=== PATIENT | female | born 1945 | race Caucasian/White ===

== ENCOUNTER → 2016-03-20 | Outpatient (REF) | payer MEDICARE ==
[~2016-03-20] MED LIST: AMLO5TAB2 PO; ANTIVERT PO; CIPR500T89 PO; FERR325T3 PO; FLAG500T PO; LASI40TA PO; LIPI20TA PO; LISI10TA4 PO; METF500T PO; PROTPAK PO; TYLE167L PO; VITA100037 PO
== END ==
LOC: M LAB REF 12:51
PROVIDERS: ATTEND Nurse Practitioner Adult Health
DX: D64.9 Anemia, unspecified (principal)

== ENCOUNTER 2016-04-09 15:54 | Outpatient (CLI) | payer MEDICARE ==
[~2016-04-09] VITALS: Ht 160.7 cm; Wt 75.3 kg
[2016-04-09] MEDS ORDERED: FUROSEMIDE 20 MG/2 ML VIAL (J1940) IV SCH (16:15)
== END 2016-04-09 23:55 | disposition home or self-care (01) ==
LOC: M OPCLI4PR 15:54 → M PED 15:57 → M OPCLI4PR 23:55
PROVIDERS: ATTEND Internal Medicine
DX: D64.9 Anemia, unspecified (principal); K52.9 Noninfective gastroenteritis and colitis, unspecified; Z87.19 Personal history of other diseases of the digestive system; Z88.5 Allergy status to narcotic agent; Z88.8 Allergy status to other drugs, medicaments and biological substances; Z91.040 Latex allergy status
CPT/HCPCS: 36430; 86850; 86900; 86901; 86920; J1940; P9016

== ENCOUNTER → 2016-04-10 | Outpatient (REF) | payer MEDICARE ==
[2016-04-10 19:26] LABS: PERCENT SATURATION 10.7 % (13.2-37.4)
[2016-04-10 20:28] LABS: RETIC HEMOGLOBIN CONTENT CHr 26.1 PG (24-36); RETICULOCYTE % ADVIA2120 4.1 % (0.5-1.5)
[2016-04-10 22:08] LABS: FOLATE 6.8 NG/ML (>5.4)
[2016-04-13 00:09] LABS: ENDOMYSIAL ABY IgA Negative (Negative)
== END ==
LOC: M LAB REF 16:46
PROVIDERS: ATTEND Nurse Practitioner Family
DX: D64.9 Anemia, unspecified (principal)

== ENCOUNTER 2016-05-29 11:46 | Inpatient (IN) | payer MEDICARE ==
[~2016-05-29] VITALS: Ht 167.6 cm; Wt 79.3 kg
[2016-05-29] VITALS (7 sets, daily range): BP systolic 130–142; BP diastolic 54–66
[~2016-05-29 11:46] MED LIST changes: -ASPI1TAB PO; -FISH100049 PO; -METO37.5 PO; -TYLE325T5 PO; -VITA100066 PO; -VITA500T53 PO
[2016-05-29] MEDS ORDERED: FISH100049 PO (11:59)
[2016-05-29] MEDS ORDERED: NS 500 ML IV ONE (12:30)
[2016-05-29] MEDS ORDERED: LISI10TA4 PO (13:22)
[2016-05-29] MEDS ORDERED: TYLE325T5 PO (13:22)
[2016-05-29] MEDS ORDERED: ASPI1TAB PO (13:22)
[2016-05-29] MEDS ORDERED: VITA100066 PO (13:22)
[2016-05-29 13:56] LABS: BASO % 0.3 % (0.0-1.0); EOS % 0.2 % (0.0-3.0); LARGE UNSTAINED CELL # 0.1 K/mm3 (0.0-0.4); LARGE UNSTAINED CELL % 1.2 % (0.0-4.0); LYMPH # 1.6 K/mm3 (1.5-4.5); LYMPH % 15.9 % (24.0-44.0); MEAN CORPUSCULAR HEMOGLOBIN 20.1 pg (27.0-33.0); MEAN CORPUSCULAR HGB CONC 25.4 g/dl (32.0-36.5); MEAN CORPUSCULAR VOLUME 78.9 fl (80.0-96.0); MONO # 0.4 K/mm3 (0.0-0.8); NEUTROPHILS # 7.7 K/mm3 (1.8-7.7); NEUTROPHILS % 78.4 % (36.0-66.0); PLATELET COUNT, AUTOMATED 314 k/mm3 (150-450); RED CELL DISTRIBUTION WIDTH 16.9 % (11.5-14.5); WHITE BLOOD COUNT 9.8 K/mm3 (4.0-10.0)
[2016-05-29 13:57] LABS: ADD MORPHOLOGY? YES; INR 1.01
--- NOTE | 2016-05-29 13:58 | HPEPDOC ---
Medical History and Physical Date of Admission 05/29/16 History and Physical ATTENDING: PCP: Candice Ko NP CC: SOB, abnormal lab HPI: 70yoF with a past medical history significant for HTN, Fe deficiency anemia , DM Diet controlled, who called PCP this am reporting SOB and dark stool this AM. Went to see PCP with labs completed-Hgb 5.4, and was referred to ED. Pt states has felt weak, lightheaded and dizzy for the last week but did not seek medical attention until today. Denies CP, heaviness, tightness, pressure. No changes in stool until this AM, no BRBPR. No abdominal pain. Pt states she usually has labs done with PCP monthly but does not know what her Hgb has been trending. No other recent illnesses. Denies any fevers, chills, ROSAS, cough, palpitations, N/V/D or changes in bowel or bladder habits. Upon presentation to the hospital the patient was found to have symptomatic anemia, thus the hospitalist team was consulted. PMHx: Fe def anemia H/O GI Bleeding H/O transfusion HLD Vit D def HTN NIDDM- diet controlled H/O Murmur. No prior testing per pt. CP 01/31- Transfer to [facility] Cath- no procedure per Pt PSHX: Cholecystectomy Lt cataract EGD 06/[address] [facility]. Small HH Colonoscopy06/[address] [facility]. inflammatory bowel disease/external hemorrhoid. 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 ROS: As noted in HPI, otherwise 11pt ROS of systems reviewed and unremarkable. PE: GEN: 70yoF, appears stated age. Pale appearing. No acute distress. Alert and oriented x 3. Pleasant, interactive. HEENT: Normocephalic, atraumatic. Pupils are equal, round, and reactive to light. Extraocular movements are intact. No nystagmus appreciated. Sclera are nonicteric. Conjunctiva pale. Nose midline. EACs both patent BL. TMs both visualized and bowen with good cone of light, no bulging or erythema. No facial asymmetry. Moist mucous membranes. Dentition fair. Pharynx pale appearing and moist. Neck supple, trachea midline. No lymphadenopathy or thyromegaly appreciated. CHEST: Regular rate and rhythm, +S1, +S2. Systolic murmur noted. LUNGS: Clear to auscultation bilaterally. No wheezes, rales, or rhonchi. Breathing appears symmetric and easy. Patient is speaking in full sentences. No accessory muscle use. ABD: Round, soft, non-tender, non-distended. +Bowel sounds throughout. No rebound or guarding. No costovertebral angle tenderness. EXT: Pulses 2+ bilaterally dorsalis pedis and radial. No lower extremity edema appreciated. SKIN: [place], dry, warm. Capillary refill <2sec. No rashes. NEURO: Alert and oriented x 3. Cranial nerves III-XII are intact. No focal deficits appreciated. CXR: report pending ALL LABS PENDING Stool guaiac pos in ED. EKG: SR, LVH, ST abn, 89 bpm. A&P: 70yoF with a past medical history significant for HTN, Fe deficiency anemia, DM Diet controlled, who called PCP this am reporting SOB and dark stool this AM. Went to see PCP with labs completed-Hgb 5.4, and was referred to ED. The patient will be admitted to PCU for at least [address] Fernando's service. Pt is discussed with Dr Fernando. GI Bleeding/Symptomatic anemia. Consent for blood products is signed and placed on chart. Type and cross. 2 units PRBC ordered. CBC Q6. Stool OB positive in ED. HOLD ASA. Add CIP/Troponin to admission labs and x3. Add Fe studies, B12/Folate to labs. Last scopes 06/30- Consult Dr Moffett to consider repeat studies, discussed with him in ED. H/O Fe def anemia. HTN. Hold Lisinopril. HLD. Continue Statin. DM. Diet controlled as outpt. Vitamin d def. Supplement. Murmur. Remote TTE in past through PCP per pt. Request [facility] records from 01/31 for review. DVT prophylaxis. SCD/TEDS The patient is a Full code Vital Signs 96.9 91 117/64 20 Laboratory Data Labs 24H Laboratory Tests 2 05/29/16 13:35: Home Medications Scheduled Aspirin (Aspirin 81) 81 Mg Tab 81 MG PO DAILY Atorvastatin Calcium (Lipitor) 20 Mg Tab 20 MG PO DAILY Cholecalciferol (Vitamin D) 1,000 Unit Tab 1,000 UNIT PO DAILY Ferrous Sulfate (Ferrous Sulfate) 325 Mg Tab 325 MG PO BID Fish Oil (Fish Oil 1000 mg) 1 Cap Cap 1 CAP PO DAILY Lisinopril (Lisinopril) 10 Mg Tab 10 MG PO DAILY Scheduled PRN Acetaminophen (Tylenol) 325 Mg Tab 650 MG PO Q4H PRN PRN PAIN Allergies Coded Allergies: Latex (Unverified Allergy, Mild, Rash, 06/24/14) Pt reports " I don't think I am allergic but I tend to breakout around latex" Morphine (Verified Adverse Reaction, Intermediate, DROP IN BP, 04/09/16) Eleanor Barrett May 29, 2016 13:57
--- NOTE | 2016-05-29 14:03 | REP ---
PORTABLE CHEST X-RAY: Single view. HISTORY: Dyspnea and cough. Comparison study February 10, 2016. FINDINGS: EKG monitoring electrodes overlie the chest. The lungs are well inflated and clear. Heart is not felt to be enlarged. Pulmonary vasculature is not increased. There are granulomatous lymph nodes in the subcarinal region which appear to be calcified. This is unchanged. Pleural angles are sharp. Oxygen tubing is seen. IMPRESSION: No active disease. Signed by Julio Self MD 05/29/2016 03:18 P
[2016-05-29 14:19] LABS: ALBUMIN/GLOBULIN RATIO 0.88 (1.00-1.93); ALKALINE PHOSPHATASE 99 U/L (45-117); ALT/SGPT 18 U/L (12-78); ANION GAP 9 MEQ/L (8-16); AST/SGOT 21 U/L (15-37); BILIRUBIN,DIRECT < 0.1 MG/DL (0.0-0.2); BILIRUBIN,TOTAL 0.4 MG/DL (0.2-1.0); BLOOD UREA NITROGEN 29 MG/DL (7-18); CARBON DIOXIDE LEVEL 26 MEQ/L (21-32); CHLORIDE LEVEL 107 MEQ/L (98-107); GLUCOSE, FASTING 100 MG/DL (83-110); POTASSIUM SERUM 4.3 MEQ/L (3.5-5.1); SODIUM LEVEL 142 MEQ/L (136-145); TOTAL PROTEIN 6.4 GM/DL (6.4-8.2)
[2016-05-29 14:35] LABS: ANISOCYTOSIS 1+; HYPOCHROMASIA 3+
[2016-05-29 14:36] LABS: MICROCYTOSIS 1+
[2016-05-29 15:10] LABS: TOTAL IRON BINDING CAPACITY 443 UG/DL (250-450)
[2016-05-29 15:12] LABS: FERRITIN 5 NG/ML (8-252)
[2016-05-29 15:45] LABS: FOLATE > 24.0 NG/ML (>5.4); VITAMIN B12 LEVEL 173 PG/ML (247-911)
--- NOTE | 2016-05-29 15:58 | IPN ---
DATE: 05/29/2016 The patient was admitted to the progressive care unit (PCU) and all the admission work is being complete. Later, the patient's cardiac enzymes came back positive for troponin I of 1.1. I discussed the findings with the patient. The patient stated that she does not have any chest pain or chest discomfort, and the patient does not have any EKG changes. I discussed the case with cardiology, Dr. Louis. We both feel the patient's troponin elevation is due to her severe anemia and the current course of management is to give the patient a blood transfusion and trending cardiac enzymes. There is really no immediate benefit to transfer the patient to [facility] because right now the most correct treatment is for blood transfusion. I discussed the findings and discussions with the patient. The patient agrees with the plan. The patient's questions are answered. For now, the patient will have 2 packed red blood cell transfusion. Hemoglobin and hematocrit will be checked every six hours. Currently, we will try to increase the hemoglobin to above 9. The patient will have a colonoscopy tomorrow.
[2016-05-29] MEDS: NS 1,000 ML IV SCH (17:26)
[2016-05-29] MEDS ORDERED: GOLYTELY SOLN 4000 ML BTL PO ONE (19:00)
[2016-05-29] MEDS: PANTOPRAZOLE 40MG INJ (PROTONIX) (C9113) IV SCH (21:25)
[2016-05-29 22:21] LABS: MEAN CORPUSCULAR HEMOGLOBIN 24.4 pg (27.0-33.0); MEAN CORPUSCULAR HGB CONC 29.8 g/dl (32.0-36.5); MEAN CORPUSCULAR VOLUME 81.7 fl (80.0-96.0); RED CELL DISTRIBUTION WIDTH 15.8 % (11.5-14.5); WHITE BLOOD COUNT 13.4 K/mm3 (4.0-10.0)
[2016-05-30 03:56] VITALS: BP 144/64
[2016-05-30 04:52] LABS: MEAN CORPUSCULAR HEMOGLOBIN 24.1 pg (27.0-33.0); MEAN CORPUSCULAR HGB CONC 29.4 g/dl (32.0-36.5); MEAN CORPUSCULAR VOLUME 82.1 fl (80.0-96.0); WHITE BLOOD COUNT 15.6 K/mm3 (4.0-10.0)
[2016-05-30 05:12] LABS: ALBUMIN 2.9 GM/DL (3.2-5.2); ALBUMIN/GLOBULIN RATIO 0.83 (1.00-1.93); BILIRUBIN,TOTAL 2.9 MG/DL (0.2-1.0); CALCIUM LEVEL 8.2 MG/DL (8.8-10.2); CREATININE FOR GFR 1.05 MG/DL (0.55-1.02); GLOMERULAR FILTRATION RATE 54.8 (>39); POTASSIUM SERUM 4.4 MEQ/L (3.5-5.1); TOTAL PROTEIN 6.4 GM/DL (6.4-8.2)
[2016-05-30 08:00] VITALS: BP 135/65
--- NOTE | 2016-05-30 08:15 | ECGEPIP ---
Stationary ECG Study [facility] - ED Test Date: 2016-05-29 Pat Name: AGUSTO PA Department: Room: - Gender: F Quality Assurance Monitor: SYLVIA : 1945 Requested By: BETINA Vergara Order Number: [id number] Reading MD: Isra Nelson Measurements Intervals [place] Rate: 89 P: 56 VT: 120 QRS: 10 QRSD: 86 T: 1 QT: 365 QTc: 445 Interpretive Statements SINUS RHYTHM LEFT VENTRICULAR HYPERTROPHY AND ST-T CHANGE NSTTW ABNORMALITIES SIMILAR TO 02/10/16 Electronically Signed On 05-30-2016 8:14:48 EDT by Isra Nelson
[2016-05-30] MEDS: VITAMIN D 1,000 INTERNATIONAL UNITS TABLET PO SCH (08:53)
[2016-05-30] MEDS: PANTOPRAZOLE 40MG INJ (PROTONIX) (C9113) IV SCH ×2 (08:53→21:23)
[2016-05-30] MEDS: NS 1,000 ML IV SCH (08:54)
[2016-05-30] MEDS ORDERED: ATORVASTATIN 20 MG TAB PO SCH (09:00)
--- NOTE | 2016-05-30 10:43 | ECGEPIP ---
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 THERE IS ARTIFACT NOTED ON THE BASELINE Electronically Signed On 05-30-2016 10:42:50 EDT by Nic Jimenez
--- NOTE | 2016-05-30 10:52 | ECGEPIP ---
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
[2016-05-30 12:00] VITALS: BP 142/68
[2016-05-30] MEDS: METOPROLOL TART 25 MG TABLET PO SCH ×2 (14:05→21:23)
[2016-05-30 14:32] LABS: MEAN CORPUSCULAR HGB CONC 29.9 g/dl (32.0-36.5); MEAN CORPUSCULAR VOLUME 80.3 fl (80.0-96.0); RED CELL DISTRIBUTION WIDTH 16.5 % (11.5-14.5); WHITE BLOOD COUNT 13.1 K/mm3 (4.0-10.0)
[2016-05-30] MEDS: CYANOCOBALAMIN 500 MCG TAB PO SCH (15:24)
--- NOTE | 2016-05-30 15:38 | IPN ---
DATE: 05/30/2016 SUBJECTIVE: Patient is seen and examined in the room today. Patient denies any chest pain. Patient has been using the bowel preparation since yesterday at 7:00 p.m. Patient stated the stool has been dark brown. Denies any visible blood. OBJECTIVE: VITAL SIGNS: Temperature 97.9, pulse is 100, respiratory rate 18, blood pressure is 135/65, pulse oximetry is 93% with two liters nasal cannula. GENERAL: No sign of acute distress, alert and oriented times three. HEENT: Normocephalic, atraumatic. Extraocular motor grossly intact. CARDIOVASCULAR: Positive S1, S2, regular rate. LUNGS: Clear to auscultation bilaterally. ABDOMEN: Soft, nontender, nondistended. Bowel sounds present. No rebound. No guarding. EXTREMITIES: No edema. No cyanosis. LABORATORY DATA: WBC is 15.6, hemoglobin is 9, hematocrit is 30.7, platelet count is 282. Sodium is 140, potassium 4.4, chloride is 104, carbon dioxide 27, BUN 25, creatinine 1.05, GFR is 54.8, fasting glucose is 139, calcium is 8.2, total bilirubin is 2.9, AST 117, ALT 88, alkaline phosphatase 123, total CK is 302, troponin I is 3, total protein is 6.4, albumin 2.9. ASSESSMENT AND PLAN: 1. Severe anemia. Patient has received three packed red blood cell transfusions since admission. Hemoglobin and hematocrit have been stable, hemoglobin of 9 and hematocrit around 30. We will continue to follow the repeat hemoglobin and hematocrit. Due to the severe anemia (hemoglobin of 5.1), patient's troponin increased from 1.1 to 2.62. Now in the morning, patient has a troponin of 3. Patient started to have some EKG changes noted. I will consult the business transformation manager. General surgeon, Dr. Moffett, has been consulted. We will wait for the business transformation manager's recommendation to see when would be an appropriate time to send patient for upper endoscopy and colonoscopy. Dr. Moffett has been consulted for the procedures. 2. Cardiac ischemia. The most recent EKG shows patient has ischemia laterally and inferiorly. The cause of ischemia is due to severe anemia. Patient's hemoglobin and hematocrit has been stable after the transfusion. We will continue to trend the cardiac markers. We appreciate the business transformation manager's additional input. Patient was started on metoprolol tartrate 25 mg by mouth twice a day to control the heart rate and the blood pressure. 3. History of gastrointestinal (GI) bleed. 4. History of iron deficiency and B12 deficiency. Patient is receiving supplements. 5. Non-insulin dependent diabetes. On consistent-carbohydrate diet, on sliding scale. 6. History of dyslipidemia. On statin. 7. Deep vein thrombosis (DVT) prophylaxis. On thromboembolic-deterrent stockings (TEDS) and sequential compression device (SCD).
[2016-05-30 16:00] VITALS: BP 112/61
--- NOTE | 2016-05-30 17:12 | CR ---
DATE OF CONSULTATION: 05/30/2016 CHIEF COMPLAINT: Blood loss anemia. HISTORY OF PRESENT ILLNESS: The patient is a 70-year-old female who presents to the emergency room (ER) with having some dark stools this morning as well as some shortness of breath. She had labs completed by her primary this morning, which showed a hemoglobin of 5.4; therefore, she was referred to the emergency room. She does feel very weak, lightheaded, and dizzy for about the past week. She has had no visible blood in her stools, but they have been slightly dark lately. Denies any chest pain, heaviness, tightness. No nausea, vomiting, and no abdominal pains. No fever, sweats, or chills. She has had problems with anemia about 2 years ago. She had a colonoscopy completed then, which did show some friable lesions in the colon that were biopsied and were negative for any type of malignancy. She was treated symptomatically with transfusions at that time. Has not had any other problems up until this past week. PAST MEDICAL HISTORY: 1. Iron deficient anemia. 2. History of gastrointestinal (GI) bleed. 3. Hyperlipidemia. 4. Vitamin D deficiency. 5. Hypertension. 6. Diabetes. PAST SURGICAL HISTORY: 1. Cholecystectomy. 2. Cataracts. 3. Esophagogastroduodenoscopy (EGD) and colonoscopy in June 2014. SOCIAL HISTORY: Denies drug and alcohol abuse. Smokes two packs a week. FAMILY HISTORY: Noncontributory. REVIEW OF SYSTEMS: Pertinent positives and negatives stated in the history of present illness (HPI). PHYSICAL EXAMINATION: Alert and oriented times three. No acute distress. VITAL SIGNS: Temperature 97.3, pulse 108, respirations 18, blood pressure 142/68, pulse oximetry 97% on 2 liters nasal cannula. HEENT: Pupils equally round and reactive to light and accommodation. HEART: S1, S2, regular rate and rhythm. LUNGS: Clear to auscultation bilaterally. ABDOMEN: Soft, nontender, nondistended. Bowel sounds positive. EXTREMITIES: No clubbing, cyanosis, or edema. LABORATORY DATA: White count 9.8, hemoglobin 5.1, platelets 314. Potassium 4.3. Initial troponin is 1.1. ASSESSMENT AND PLAN: The patient is a 70-year-old female with symptomatic iron deficient anemia, likely secondary to a gastrointestinal (GI) bleed. She is Hemoccult positive. Plan is to do an EGD and colonoscopy once cleared by cardiology. Medicine team is prepping her overnight. We will trend her troponins and plan for likely scopes tomorrow once we have official cardiac clearance.
[2016-05-30 19:56] VITALS: BP 153/60
[2016-05-30 20:17] LABS: MEAN CORPUSCULAR HEMOGLOBIN 24.9 pg (27.0-33.0); MEAN CORPUSCULAR HGB CONC 31.2 g/dl (32.0-36.5); MEAN CORPUSCULAR VOLUME 79.8 fl (80.0-96.0); RED CELL DISTRIBUTION WIDTH 16.7 % (11.5-14.5); WHITE BLOOD COUNT 11.7 K/mm3 (4.0-10.0)
[2016-05-30 23:59] VITALS: BP 114/63
[2016-05-31] VITALS (11 sets, daily range): BP systolic 120–166; BP diastolic 52–93
[2016-05-31 00:43] LABS: MEAN CORPUSCULAR HEMOGLOBIN 24.5 pg (27.0-33.0); MEAN CORPUSCULAR HGB CONC 30.7 g/dl (32.0-36.5); MEAN CORPUSCULAR VOLUME 79.8 fl (80.0-96.0)
[2016-05-31] MEDS: NS 1,000 ML IV SCH ×2 (01:19→09:39)
--- NOTE | 2016-05-31 05:20 | CR ---
DATE OF CONSULTATION: 05/30/2016 CARDIOLOGY CONSULTATION: REASON FOR THE CONSULTATION: Abnormal serum troponin. HISTORY OF PRESENT ILLNESS: 70-year-old woman was admitted on 05/29/2016 after she was found to be markedly anemic with a hemoglobin of 5.4. At that time, she was having weakness, dizziness, and shortness of breath with activities. Prior to that, about 3-5 days, she passed some dark colored stools. She called her primary and she was found to be markedly anemic and she was transferred to the emergency room (ER) from where she was admitted. She was found to have an abnormal EKG and her serum troponin was 1.1, then increased this morning up to 3.0. For this reason, cardiology consult was called. When I saw Mrs. Sangita Benavides, she was in sitting up in bed, in no acute distress. She is planning to have a colonoscopy and gastroscopy looking for a source of gastrointestinal (GI) bleed. Her stools are now brown. Her hemoglobin and hematocrit after being transferred 4 units of packed red blood cells have been fairly stable. She denies any chest pain and she has not been having any shortness of breath. She denies any palpitations. There is no orthopnea or paroxysmal nocturnal dyspnea (PND) or any syncope. It seems that Mrs. Sangita Benavides had the same problem last fall and she was transferred from [facility] with symptomatic anemia, and at that time, she was transfused 1 unit packed red blood cells prior to leaving [facility] emergency room (ER). She had abnormal serum troponin and abnormal EKG. She underwent gastroscopy and no active bleeding was found. She had a nuclear stress test that revealed a small area of inferior wall ischemia and there was a fixed defect at the apex. Left ventricular ejection fraction (LVEF) was about 40-45%. It seemed that she also had a cardiac catheterization in month of February of 2015 and at that time, she was found to have an occluded dominate right coronary artery (RCA) with left to right . No significant disease in the left coronary artery system. Prior to that, in the month of January, she had an echocardiogram that revealed moderately severe aortic stenosis and mitral regurgitation. She denies any nausea or vomiting, or abdominal pain. She has no fever or chills. She has no cough or hemoptysis. There is no polydipsia, polyuria or hematuria. There is no focal manifestation. She has a past medical history positive for coronary artery disease with an occluded RCA, otherwise no significant disease, moderate left ventricular systolic dysfunction, moderately severe aortic stenosis and mitral regurgitation, hypertension, hyperlipidemia, anemia secondary to GI bleed for which workup so far has been negative. She denies any prior history of myocardial infarction, atrial fibrillation, CVA, diabetes mellitus, kidney disease, thyroid disorders. Past surgical history is positive for cholecystectomy, left cataract extraction. She had a colonoscopy done in June of 2014 and it seemed that it reported inflammatory bowel disease and external hemorrhoids, done by Dr. Grimaldo. Esophagogastroduodenoscopy (EGD) at that time revealed a small hiatal hernia. FAMILY HISTORY: Noncontributory. SOCIAL HISTORY: Patient lives with her , and there is no report of smoking or ethyl alcohol (EtOH) abuse or illicit drugs. She has four grownup children. ALLERGIES: To LATEX and MORPHINE. ADVANCE DIRECTIVES: Patient is a FULL CODE. PHYSICAL EXAMINATION: Patient is alert and oriented, in no acute distress at rest, and her last vital signs, when I saw her this evening, revealed a blood pressure of 115/60 with a pulse of 102, respiration 20 and her maximum temperature was 98.4 degrees Fahrenheit with an oxygen saturation of 98% on 2 liter nasal cannula. Examination of head, ears, eyes, nose, and throat: Atraumatic. Neck is supple, no jugular venous distention (JVD). The lungs were clear bilaterally on auscultation without any wheezing or crackles. The heart examination revealed normal S1 and S2 without gallops. The point of maximal impulse (PMI) is slightly displaced inferiorly. There is no rub. There is a systolic murmur, grade 2/6, at the base of the heart with some radiation to the neck, and also heard at the lower left sternal border and at the apex with some minimal radiation to the axilla. Abdomen is soft and nontender, bowel sounds are active. Extremities revealed no pedal edema. Neurological examination grossly is negative for focal deficit. LABORATORIES: BMP done today revealed a sodium of 140, potassium 4.4, chloride 104, CO2 27, BUN 25, creatinine 1.05, GFR 54.8, fasting glucose 139, and calcium 8.2. Liver enzymes revealed a total bilirubin of 2.9, AST 117, ALT 88, alkaline phosphatase 123, total protein 6.4, albumin 2.9. Last set of cardiac enzymes was 2.75 and peak this morning up to 3.0. Initially, it was 1.10. Serum iron was 9.0. CBC done today revealed a WBC of 11.7, hemoglobin 8.7, hematocrit 27.8 and platelets 238,000. On admission, on 05/29/2016, CBC revealed a WBC of 13.4, hemoglobin 9.1, hematocrit 30.6 and platelets 277,000. PT was 13.4 with an INR of 1.01 and a PTT of 28.7. Chest x-ray was reviewed and revealed no active disease process. Electrocardiogram on admission revealed normal sinus rhythm at 89 beats per minute, voltage criteria for left ventricular hypertrophy and nonspecific ST-T abnormalities noted . That was thought to be similar to 02/10/2016. Electrocardiogram done this morning revealed sinus tachycardia at 111 beats per minute and nonspecific ST-T abnormalities, no significant changes from last tracing. IMPRESSION: 70-year-old woman with recurrent anemia secondary to gastrointestinal bleed. Workup in January of 2016, in [place], [place], at [facility] was not conclusive. The plan is for possibly gastroscopy as well as colonoscopy and patient may proceed as scheduled. The case was discussed with her hospitalist and she was started on small dose of short-acting beta-hoda of . I have noticed her liver function tests (LFTs) are abnormal and I will hold for now the atorvastatin. There is no need for further workup at this present time. Please do not hesitate to call if any questions. It was a pleasure to participate in the care of Mrs. Sangita Benavides for her underlying cardiac condition. I will continue to monitor along with you as needed.
[2016-05-31] MEDS: METOPROLOL TART 25 MG TABLET PO SCH ×3 (05:30→21:09)
[2016-05-31 06:15] LABS: MEAN CORPUSCULAR HEMOGLOBIN 24.1 pg (27.0-33.0); MEAN CORPUSCULAR HGB CONC 29.8 g/dl (32.0-36.5); RED CELL DISTRIBUTION WIDTH 17.1 % (11.5-14.5); WHITE BLOOD COUNT 11.1 K/mm3 (4.0-10.0)
[2016-05-31 06:32] LABS: ALBUMIN 2.7 GM/DL (3.2-5.2); ALBUMIN/GLOBULIN RATIO 0.82 (1.00-1.93); ALKALINE PHOSPHATASE 145 U/L (45-117); ALT/SGPT 111 U/L (12-78); ANION GAP 8 MEQ/L (8-16); AST/SGOT 98 U/L (15-37); BILIRUBIN,TOTAL 1.3 MG/DL (0.2-1.0); BLOOD UREA NITROGEN 20 MG/DL (7-18); CALCIUM LEVEL 8.3 MG/DL (8.8-10.2); CARBON DIOXIDE LEVEL 27 MEQ/L (21-32); CHLORIDE LEVEL 107 MEQ/L (98-107); CREATININE FOR GFR 0.91 MG/DL (0.55-1.02); GLOMERULAR FILTRATION RATE > 60.0 (>39); GLUCOSE, FASTING 109 MG/DL (83-110); POTASSIUM SERUM 4.3 MEQ/L (3.5-5.1); SODIUM LEVEL 142 MEQ/L (136-145)
[2016-05-31] MEDS ORDERED: INFLUENZA VIRUS VACCINE HIGH DOSE 0.5 ML SYRINGE (90662) IM ONE (09:00)
[2016-05-31] MEDS ORDERED: MIDAZOLAM INJ 2 MG/2 ML VIAL (J2250) As Ordered ONE (12:44)
[2016-05-31] MEDS ORDERED: PROPOFOL 200 MG/20 ML VIAL As Ordered ONE (12:45)
[2016-05-31] MEDS ORDERED: LIDOCAINE 2% INJ 100 MG/5 ML SDV (FOR ANES.) As Ordered ONE (12:45)
[2016-05-31 14:13] LABS: MEAN CORPUSCULAR HEMOGLOBIN 24.7 pg (27.0-33.0); MEAN CORPUSCULAR HGB CONC 30.1 g/dl (32.0-36.5); RED CELL DISTRIBUTION WIDTH 16.9 % (11.5-14.5); WHITE BLOOD COUNT 9.8 K/mm3 (4.0-10.0)
[2016-05-31] MEDS: CYANOCOBALAMIN 500 MCG TAB PO SCH (14:43)
[2016-05-31] MEDS: VITAMIN D 1,000 INTERNATIONAL UNITS TABLET PO SCH (14:43)
[2016-05-31] MEDS: PANTOPRAZOLE 40MG INJ (PROTONIX) (C9113) IV SCH ×2 (14:45→21:08)
--- NOTE | 2016-05-31 18:23 | IPN ---
DATE: 05/31/2016 SUBJECTIVE: Patient seen and examined in the room today. Patient denies any acute complaint or acute changes. Denies any chest pain; however, patient still feels she has difficulty with breathing; therefore, she continues to require oxygen support. OBJECTIVE: VITAL SIGNS: Temperature 97.1, pulse is 90, respirations 18, blood pressure is 127/93, pulse oximetry is 98% with 2 liters nasal cannula. GENERAL: No sign of acute distress, alert and oriented times three. HEENT: Normocephalic, atraumatic. Extraocular motor grossly intact. CARDIOVASCULAR: Positive S1, S2, regular rate. LUNGS: Clear to auscultation bilaterally. ABDOMEN: Soft, nontender, nondistended. Bowel sounds present. No rebound. No guarding. EXTREMITIES: No edema. No sign of cyanosis. LABORATORY DATA: WBC is 9.8, hemoglobin 9.2, hematocrit 30.6, platelet count 224. Sodium is 142, potassium is 4.3, chloride 107, carbon dioxide 27, BUN 20, creatinine 0.91, GFR greater than 60, fasting glucose is 109, calcium is 8.3. Total bilirubin is 1.3, AST is 98, ALT is 111, alkaline phosphatase 145. Total CK is 303, troponin I is 1.82. Total protein is 6, albumin is 2.7. ASSESSMENT AND PLAN: 1. Severe anemia. Suspect gastrointestinal (GI) bleed. Patient finished a bowel movement prep yesterday. Patient remains nothing by mouth. Patient seen by Dr. Jimenez. Is cleared for seizures. Patient will have an upper endoscopy and colonoscopy by general surgeon, Dr. Moffett. Initially, patient presented with a hemoglobin of 5.1. Patient received 3 packed red blood cells transfusion on the day of admission. Today before the procedure, due to the lowering the hemoglobin and hematocrit, patient will get another packed red blood cells before the procedure. 2. Cardiac ischemia, most likely secondary to severe anemia. Patient's troponin has been trending from 1.1 to 3.0. Yesterday with blood transfusion the troponin still has to trend down, and today the most recent troponin is 1.8. Cardiology has been consulted. 3. History of GI bleed. Patient will follow with upper endoscopy and colonoscopy report. 4. History of iron deficiency and B12 deficiency. Patient is receiving supplements. 5. Spr-[id number] diabetes. Patient was on nothing by mouth. After the procedure will resume patient back to her diet, and patient will be on sliding scale. 6. History of dyslipidemia, on statin. 7. Deep vein thrombosis (DVT) prophylaxis, on thromboembolic deterrents (TEDs) and sequential compression devices.
--- NOTE | 2016-05-31 20:16 | ECHO ---
DATE OF PROCEDURE: 05/30/2016 INDICATION: Abnormal EKG and abnormal serum troponin. PATIENT LOCATION: Room 3228. REFERRING PROVIDER: Nic Jimenez MD 2D MEASUREMENTS: IVS: 1.2 cm LVPW: 1.2 cm LV end diastolic: 4.2 cm Aortic root: 2.6 cm LA: 3.8 cm IVC: 1.5 cm DOPPLER MEASUREMENTS: Peak velocity across the aortic valve: 3.0 m/s Peak velocity across the LVOT: 0.8 m/s Peak gradient across the aortic valve: 36 mmHg Mean gradient across the aortic valve: 21 mmHg Mitral E: 1.3 Mitral A: 1.4 with a ratio of 0.97 Peak gradient across the mitral valve: 9 mmHg Mean gradient across the mitral valve: 5 mmHg Maximum tricuspid valve velocity: 3.2 m/s 2D COMMENTS: 1. Normal left ventricular size with borderline increased left ventricular wall thickness but a depressed global left ventricular systolic function. There is mild global hypokinesis, and the estimated left ventricular systolic function is between 40 to 45%. 2. Subjectively, the left atrium appeared to be mildly enlarged. Normal right atrium and right ventricle. 3. The atrial septum appeared to be normal without evidence of defect or shunt. 4. Normal aortic root. 5. No pericardial effusion seen. 6. Moderately calcified aortic valve with decrease in leaflet excursion. Moderately calcified mitral annulus with normal anterior mitral valve leaflet motion. Normal tricuspid valve. The pulmonic valve appeared to be normal in limited views. The proximal pulmonary artery branches were not well visualized. 7. The inferior vena cava was normal in size; central venous pressure is probably normal. DOPPLER: It detects mild aortic regurgitation, moderate mitral regurgitation, and mild to moderate tricuspid regurgitation. The calculated pulmonary artery systolic pressure varies between 40 to 50 mmHg. Abnormal relaxation pattern was noted across the mitral valve leaflets as well as the mitral valve annulus, consistent with a delayed relaxation. IMPRESSION: 1. Normal global left ventricular systolic function with probably mild concentric left ventricular hypertrophy. There were features of left ventricular diastolic dysfunction, grade 1. 2. Aortic valve sclerosis with mild aortic regurgitation and moderate aortic stenosis. 3. Mitral annulus calcification with moderate mitral regurgitation and probably mild calcific mitral stenosis. 4. Mild to moderate tricuspid regurgitation with moderate pulmonary hypertension.
[2016-06-01] MEDS: METOPROLOL TART 25 MG TABLET PO SCH ×2 (05:19→13:27)
[2016-06-01 05:43] LABS: ALBUMIN 2.5 GM/DL (3.2-5.2); ALBUMIN/GLOBULIN RATIO 0.78 (1.00-1.93); BILIRUBIN,TOTAL 1.2 MG/DL (0.2-1.0); CALCIUM LEVEL 8.2 MG/DL (8.8-10.2); CREATININE FOR GFR 1.07 MG/DL (0.55-1.02); GLOMERULAR FILTRATION RATE 53.7 (>39); POTASSIUM SERUM 4.4 MEQ/L (3.5-5.1); TOTAL PROTEIN 5.7 GM/DL (6.4-8.2)
[2016-06-01 06:21] LABS: MEAN CORPUSCULAR HEMOGLOBIN 24.7 pg (27.0-33.0); MEAN CORPUSCULAR HGB CONC 29.7 g/dl (32.0-36.5); MEAN CORPUSCULAR VOLUME 83.5 fl (80.0-96.0); RED CELL DISTRIBUTION WIDTH 17.6 % (11.5-14.5); WHITE BLOOD COUNT 9.5 K/mm3 (4.0-10.0)
[2016-06-01 08:00] VITALS: BP 117/57
[2016-06-01] MEDS ORDERED: METO37.5 PO (08:53)
[2016-06-01] MEDS ORDERED: VITA500T53 PO (08:53)
[2016-06-01] MEDS: PANTOPRAZOLE 40MG INJ (PROTONIX) (C9113) IV SCH (08:59)
[2016-06-01] MEDS: CYANOCOBALAMIN 500 MCG TAB PO SCH (08:59)
[2016-06-01] MEDS: VITAMIN D 1,000 INTERNATIONAL UNITS TABLET PO SCH (08:59)
[2016-06-01 13:27] VITALS: BP 127/60
--- NOTE | 2016-06-01 19:10 | DSES ---
DATE OF ADMISSION: 05/29/2016 DATE OF DISCHARGE: 06/01/2016 PRIMARY CARE PROVIDER: Candice Ervin. CONSULTANTS: 1. General Surgeon, Dr. Roosevelt Moffett. 2. Cardiology, Dr. Jimenez. PROCEDURES: Upper endoscopy and colonoscopy. COMPLICATIONS: None. ADMISSION/DISCHARGE DIAGNOSES: 1. Severe anemia. 2. Cardiac ischemia secondary to severe anemia. 3. History of gastrointestinal (GI) bleed. 4. History of iron deficiency and B12 deficiency. 5. Bkd-stlpxnk-yoolxtdio diabetes. 6. History of dyslipidemia. HOSPITALIZATION COURSE: The patient is a 70-year-old female who presented to [facility] on 05/29/2016, for severe anemia. The patient was sent from the primary care provider's (PCP) office for low hemoglobin and hematocrit. After patient arrived in the emergency room, the repeated laboratory work showed the patient has a hemoglobin of 5.1, hematocrit 20.2. Hemoccult is positive, and the patient also noted to have cardiac ischemia from the severe anemia. The patient was admitted to the progressive care unit (PCU), started nothing by mouth. The patient got urgent three packed red blood cell transfusions. The patient's cardiac enzymes have been repeated continuously. Initially, the patient's international normalized ratio (INR) increased from one to three within a 12-hour period, and multiple discussions occurred with the patient and discussed the fact of her severe anemia to her heart. The case also discussed with the automotive detailer. It was determined that the patient's cardiac ischemia is due to severe anemia and the best treatment will be to continue blood transfusion and continue with medical management. Pre-procedure clearance was performed by the automotive detailer, Dr. Jimenez, and after receiving clearance, the patient had an upper endoscopy and colonoscopy done by Dr. Moffett on 05/31/2016. The patient tolerated the procedure well and the patient's diet was advanced. The patient's hemoglobin and hematocrit remained stable since the initial transfusions, and there is no obvious source of bleeding except internal hemorrhoids. The patient is determined medically stable for discharge with recommendation to have more frequent followup with her primary care provider due to the fact that the patient had a similar episode occurring in January 2016. LABORATORY DATA: On the day of discharge, WBC 9.5, hemoglobin 9 (hemoglobin was 5.1 on the day of admission), hematocrit 30.5 (hematocrit of 30 on the day of admission), and platelets are 200. Sodium is 143, potassium 4.4, chloride 108, carbon dioxide 27, BUN 31, creatinine 1.07, GFR is 53.7, fasting glucose 93, calcium 8.2. Total bilirubin is 1.2, AST 75, ALT 118, alkaline phosphatase 162. Total CK is 180, troponin I is 1.14 (highest troponin is 3 on 05/30/2016). Total protein 5.7, albumin 2.5. Vitamin B12 on 05/29/2016, is 173. Folate level is normal. Iron is 9, ferritin is 5, TIBC is 443. Chest x-ray showed no active disease. DISCHARGE MEDICATIONS: - vitamin B12 2000 mcg by mouth daily - metoprolol tartrate 37.5 mg by mouth twice a day - Tylenol 650 mg by mouth every four hours as needed - Lipitor 20 mg by mouth daily - vitamin D 1000 units by mouth daily - ferrous sulfate 325 mg by mouth twice a day - lisinopril 10 mg by mouth daily DISCHARGE INSTRUCTIONS: Discontinue lines. Discharge home. Activity as tolerated. Diet as tolerated. The patient should followup with the primary care provider within one week. DISCHARGE TIME: Greater than 30 minutes. DISCHARGE CONDITION: Stable.
--- NOTE | 2016-06-01 20:27 | RO ---
DATE OF PROCEDURE: 05/31/2016 PREOPERATIVE DIAGNOSIS: Iron deficient anemia. POSTOPERATIVE DIAGNOSIS: Mild gastritis, poor bowel prep, diverticulosis and internal hemorrhoids. PROCEDURE: Esophagogastroduodenoscopy (EGD) with biopsy and colonoscopy. SURGEON: Dr. Roosevelt Moffett ZOO CARETAKER: None. ANESTHESIA: IV sedation. COMPLICATIONS: None. INDICATIONS FOR PROCEDURE: The patient is a 70-year-old female who presents with a history of iron deficient anemia that was symptomatic with a hemoglobin just over 5. She also had fecal occult blood positive stool on admission. Recommendation was to proceed with EGD and colonoscopy. Risks and benefits of the procedure, not limited to but including bleeding, infection and perforation discussed in detail with the patient, informed consent was obtained and procedure was planned. DESCRIPTION OF PROCEDURE: The patient was brought back to operating room one. After sufficient sedation, the patient was placed in the left lateral decubitus position. Next, a bite block was placed, starting off with the upper, the gastroscope was passed through the esophagus into the stomach, into the second portion of the duodenum without any complications. Scope was then slowly withdrawn. There was some erythema and superficial streaking, prepyloric. A biopsy was taken there for Helicobacter (H) pylori. Scope was then retroflexed to examine the fundus. No lesions were identified. The scope was then slowly withdrawn. The gastroesophageal junction was normal. The scope was then brought out through the esophagus, thus ending that portion of the procedure. Next, the colonoscope was passed through the rectum all the way to the level of the cecum under direct visualization. There was poor bowel prep, lots of liquid stool throughout the entire colon. Areas where there was pooling were aspirated and irrigation was used in other areas to help identify as many possible lesions as possible. There was no masses or polyps identified anywhere in the entire colon. There were a few scattered medium-size diverticulum in the sigmoid colon. No signs of any bleeding. Scope was then brought back into the rectum and retroflexed, noting some internal hemorrhoids, again no signs of any active or recent bleeding in the rectum or anywhere else in the colon. Scope was then removed the rest of the way. The patient was awakened from anesthesia and sent to the post-anesthesia care unit (PACU) in stable condition.
== END 2016-06-01 13:34 | disposition home or self-care (01) | DRG 378 ==
LOC: M ED 12:45 → M ED INP 14:15 → M PCU 16:06
PROVIDERS: ADMIT Internal Medicine; ATTEND Internal Medicine
PROC: 30233N1 Transfusion of Nonautologous Red Blood Cells into Peripheral Vein, Percutaneous Approach (ICD-10-PCS; 2016-05-29)
PROC: 0DJD8ZZ Inspection of Lower Intestinal Tract, Via Natural or Artificial Opening Endoscopic (ICD-10-PCS; 2016-05-31)
PROC: 0DB68ZX Excision of Stomach, Via Natural or Artificial Opening Endoscopic, Diagnostic (ICD-10-PCS; principal; 2016-05-31 12:00)
DX: K92.2 Gastrointestinal hemorrhage, unspecified (principal); D62 Acute posthemorrhagic anemia; E11.9 Type 2 diabetes mellitus without complications; E78.5 Hyperlipidemia, unspecified; I25.9 Chronic ischemic heart disease, unspecified; Z79.899 Other long term (current) drug therapy; Z79.82 Long term (current) use of aspirin; I10 Essential (primary) hypertension; Z91.040 Latex allergy status; Z88.5 Allergy status to narcotic agent; E55.9 Vitamin D deficiency, unspecified; I35.0 Nonrheumatic aortic (valve) stenosis; I34.0 Nonrheumatic mitral (valve) insufficiency; K64.8 Other hemorrhoids

== ENCOUNTER → 2016-05-29 | Outpatient (REF) | payer MEDICARE ==
[~2016-05-29] MED LIST changes: +ASPI1TAB PO; +FISH100049 PO; +METO37.5 PO; +TYLE325T5 PO; +VITA100066 PO; +VITA500T53 PO
== END ==
LOC: M LAB REF 12:53
PROVIDERS: ATTEND Nurse Practitioner Adult Health
DX: D64.9 Anemia, unspecified (principal)

== ENCOUNTER 2016-06-04 14:11 | Inpatient (IN) | payer MEDICARE ==
[~2016-06-04] VITALS: Ht 167.6 cm; Wt 75.2 kg
[~2016-06-04 14:11] MED LIST changes: +ASPI1TAB PO; +FISH100049 PO; +METO37.5 PO; +TYLE325T5 PO; +VITA100066 PO; +VITA500T53 PO
[2016-06-04] MEDS ORDERED: METO-346 PO (14:29)
[2016-06-04] MEDS ORDERED: LIAL1.2T PO (14:29)
--- NOTE | 2016-06-04 16:27 | REP ---
Portable chest x-ray: Single view. History: Dyspnea and cough. Comparison study: May 29, 2016. Findings: EKG monitoring electrodes overlie the chest. Cardiomegaly is again observed. Pulmonary vasculature is cephalized and somewhat congested compared to the prior study. There is haziness and early blunting of the right lateral pleural angle. Impression: CHF pattern, slight blunting right lateral pleural angle and pulmonary vascular congestion. Signed by Julio Self MD 06/04/2016 04:58 P
[2016-06-04] MEDS ORDERED: FUROSEMIDE 40 MG/4 ML VIAL (J1940) IV ONE (16:45)
[2016-06-04] MEDS ORDERED: FUROSEMIDE 20 MG/2 ML VIAL (J1940) IV SCH (17:00)
[2016-06-04 17:09] LABS: BASO % 0.4 % (0.0-1.0); EOS % 0.5 % (0.0-3.0); LARGE UNSTAINED CELL # 0.1 K/mm3 (0.0-0.4); LARGE UNSTAINED CELL % 1.6 % (0.0-4.0); LYMPH # 1.6 K/mm3 (1.5-4.5); LYMPH % 18.1 % (24.0-44.0); MEAN CORPUSCULAR HEMOGLOBIN 24.8 pg (27.0-33.0); MEAN CORPUSCULAR HGB CONC 29.6 g/dl (32.0-36.5); MEAN CORPUSCULAR VOLUME 83.7 fl (80.0-96.0); MONO # 0.4 K/mm3 (0.0-0.8); MONO % 4.8 % (0.0-5.0); NEUTROPHILS # 6.5 K/mm3 (1.8-7.7); NEUTROPHILS % 74.7 % (36.0-66.0); PLATELET COUNT, AUTOMATED 238 k/mm3 (150-450); RED CELL DISTRIBUTION WIDTH 18.2 % (11.5-14.5); WHITE BLOOD COUNT 8.8 K/mm3 (4.0-10.0)
[2016-06-04 17:15] LABS: ADD MORPHOLOGY? YES
[2016-06-04 17:20] LABS: ALBUMIN 2.9 GM/DL (3.2-5.2); ALKALINE PHOSPHATASE 144 U/L (45-117); ALT/SGPT 81 U/L (12-78); ANION GAP 6 MEQ/L (8-16); AST/SGOT 26 U/L (15-37); BILIRUBIN,DIRECT 0.3 MG/DL (0.0-0.2); BILIRUBIN,TOTAL 0.9 MG/DL (0.2-1.0); BLOOD UREA NITROGEN 18 MG/DL (7-18); CALCIUM LEVEL 8.7 MG/DL (8.8-10.2); CARBON DIOXIDE LEVEL 32 MEQ/L (21-32); CHLORIDE LEVEL 106 MEQ/L (98-107); CREATININE FOR GFR 0.85 MG/DL (0.55-1.02); GLOMERULAR FILTRATION RATE > 60.0 (>39); GLUCOSE, FASTING 101 MG/DL (83-110); POTASSIUM SERUM 3.9 MEQ/L (3.5-5.1); SODIUM LEVEL 144 MEQ/L (136-145); THYROXINE (T4) 11.6 UG/DL (4.5-12.0); TOTAL PROTEIN 5.8 GM/DL (6.4-8.2)
[2016-06-04 17:42] LABS: HYPOCHROMASIA 2+
[2016-06-04 17:43] LABS: ANISOCYTOSIS 1+; POLYCHROMASIA 1+
[2016-06-04] MEDS ORDERED: VITA10002 PO (17:49)
[2016-06-04] MEDS ORDERED: METO12TA PO (17:49)
[2016-06-04] MEDS ORDERED: ACETAMINOPHEN TAB 650MG DOSE (2X325MG) PO PRN (18:30)
--- NOTE | 2016-06-04 18:32 | ECGEPIP ---
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
[2016-06-04] MEDS ORDERED: METOPROLOL TART 25 MG TABLET PO SCH (21:00)
[2016-06-04 21:06] VITALS: BP 143/67
[2016-06-04] MEDS: MESALAMINE 400 MG CAPSULE DELAYED RELEASE (DELZICOL) PO SCH (21:47)
[2016-06-04] MEDS: FERROUS SULFATE 325MG TAB PO SCH (21:47)
[2016-06-04] MEDS: SENOKOT S TAB PO SCH (21:47)
[2016-06-04 23:48] VITALS: BP 127/68
--- NOTE | 2016-06-05 00:32 | HPE ---
DATE OF ADMISSION: 06/04/2016 PRIMARY CARE PROVIDER: Sagrario Ko CHIEF COMPLAINT: Shortness of breath, dyspnea on exertion. HISTORY OF THE PRESENT ILLNESS: This is a 70-year-old female patient with underlying medical history of hypertension, iron deficiency anemia, diabetes - diet controlled, recently discharged on 06/01/2016, admitted for acute blood loss anemia with non-ST elevation myocardial infarction (NSTEMI) secondary to demand ischemia due to severe anemia, status post esophagogastroduodenoscopy (EGD), colonoscopy done during previous admission. The patient was transfused a total of four units packed red blood cells. Subsequently was discharged. After patient arrived home, for the past two days, the patient has been having progressively worsening dyspnea with worsening dyspnea on exertion, worsening lower extremity swelling. Cardiology, Dr. iJmenez, was consulted during the previous admission. The patient has no history of congestive heart failure (CHF), does not use oxygen at home. Subsequently denies any chest pain, pressure or discomfort. Denies any fevers or chills. Denies any episodes of gastrointestinal (GI) bleed, coughing, fevers or chills. Denies eating a high-salt diet or doing anything different since discharge. Denies any nausea or vomiting. PAST MEDICAL HISTORY: Iron deficiency anemia. History of GI bleed. History of transfusion. Dyslipidemia. Vitamin D deficiency. Hypertension. Type 2 diabetes, diet controlled. History of murmur. History of coronary artery disease. PAST SURGICAL HISTORY: Cholecystectomy. Left cataract. EGD. Colonoscopy: Inflammatory bowel disease, external hemorrhoids. SOCIAL HISTORY: Lives at home. with four children. Retired. Smokes two packs per week. Denies alcohol use. Denies illicit drug use. FAMILY HISTORY: Coronary artery disease. REVIEW OF SYSTEMS: 11-point review of systems negative except for those mentioned in the history of the present illness. HOME MEDICATIONS: - acetaminophen 650 mg by mouth every 4 hours as needed - Lipitor 20 mg by mouth daily - vitamin D 1000 units by mouth daily - vitamin B12 2000 mcg by mouth daily - ferrous sulfate 325 mg by mouth twice a day - fish oil one capsule by mouth daily - lisinopril 10 mg by mouth daily - mesalamine 1.2 grams one tablet by mouth twice a day - metoprolol 25 mg by mouth twice a day PHYSICAL EXAMINATION: VITAL SIGNS: Temperature 98.6, pulse 103, respirations 20, blood pressure 157/74, pulse oximetry 96% on room air. GENERAL: The patient is obese, alert, oriented times three, in no acute distress. HEENT: Normocephalic, atraumatic. PULMONARY: Mild rhonchi. CARDIAC: Regular rate and rhythm. Normal S1, S2. ABDOMEN: Soft, nontender, nondistended. EXTREMITIES: 1+ bilateral lower extremity edema. EKG: Sinus rhythm at 93, T-wave inversion V1. LABORATORY: WBC 8.8, hemoglobin and hematocrit 10.3 over 34.8, platelets 238. Chemistry: Sodium 144, potassium 3.9, chloride 106, bicarbonate 32, BUN 18, creatinine 0.85, troponin 0.28, BNP 2210, ASSESSMENT AND PLAN: This is a 70-year-old female patient with underlying medical history of hypertension, iron deficiency anemia, diet-controlled type 2 diabetes, dyslipidemia, recently admitted for severe anemia, symptomatic, NSTEMI. Currently admitted for acute congestive heart failure exacerbation. PROBLEMS: 1. Acute congestive heart failure exacerbation. Strict intake and output, daily weight. Cardiology consulted. Followup cardiac enzymes, echocardiograms. Continue beta hoda, lisinopril, Lasix for diuresis. X-rays appreciated. Repeat echo, cardiology recommendation. Dr. Louis has been consulted, covering for Dr. Jimenez. 2. Dyslipidemia. Continue statin. 3. Iron deficiency anemia. Continue supplementation. 4. Hypertension. Continue metoprolol and lisinopril. Continue to monitor. 5. Gastroesophageal reflux disease (GERD). Continue proton pump inhibitor (PPI). 6. Diabetes, diet controlled. Continue to monitor. 7. Deep vein thrombosis (DVT) prophylaxis. Patient with recent severe anemia. Will avoid pharmacological agents. Venodyne sequential compression device. DISPOSITION: Pending cardiology consultation, diuresis, physical therapy.
[2016-06-05] MEDS ORDERED: SLF 3 ML SYR IV PRN (01:15)
[2016-06-05 01:57] LABS: MAGNESIUM LEVEL 2.1 MG/DL (1.8-2.4)
[2016-06-05 03:54] VITALS: BP 142/82
[2016-06-05 05:59] LABS: MEAN CORPUSCULAR HEMOGLOBIN 24.6 pg (27.0-33.0); MEAN CORPUSCULAR HGB CONC 29.7 g/dl (32.0-36.5); MEAN CORPUSCULAR VOLUME 83.1 fl (80.0-96.0); RED CELL DISTRIBUTION WIDTH 18.2 % (11.5-14.5); WHITE BLOOD COUNT 8.3 K/mm3 (4.0-10.0)
[2016-06-05 06:04] LABS: CALCIUM LEVEL 8.8 MG/DL (8.8-10.2); CREATININE FOR GFR 0.99 MG/DL (0.55-1.02); GLOMERULAR FILTRATION RATE 58.7 (>39); POTASSIUM SERUM 3.7 MEQ/L (3.5-5.1)
[2016-06-05] MEDS: SLF 3 ML SYR IV SCH ×3 (06:28→21:04)
[2016-06-05 08:00] VITALS: BP 133/73
[2016-06-05] MEDS: MESALAMINE 400 MG CAPSULE DELAYED RELEASE (DELZICOL) PO SCH ×2 (09:51→21:04)
[2016-06-05] MEDS: SPIRONOLACTONE 12.5MG PER 1/2 TABLET PO SCH (09:52)
[2016-06-05] MEDS: CYANOCOBALAMIN 500 MCG TAB PO SCH (09:52)
[2016-06-05] MEDS: VITAMIN D 1,000 INTERNATIONAL UNITS TABLET PO SCH (09:52)
[2016-06-05] MEDS: FERROUS SULFATE 325MG TAB PO SCH ×2 (09:52→21:04)
[2016-06-05] MEDS: LISINOPRIL 10 MG TAB PO SCH (09:53)
[2016-06-05] MEDS: SENOKOT S TAB PO SCH ×2 (09:53→21:04)
[2016-06-05] MEDS: METOPROLOL TART 50 MG TAB PO SCH ×2 (09:54→21:04)
[2016-06-05] MEDS: PANTOPRAZOLE 40MG TAB (PROTONIX) PO SCH (09:54)
[2016-06-05] MEDS: ATORVASTATIN 20 MG TAB PO SCH (09:54)
[2016-06-05] MEDS: FUROSEMIDE 20 MG/2 ML VIAL (J1940) IV SCH ×2 (09:55→17:20)
--- NOTE | 2016-06-05 10:05 | CR ---
DATE OF CONSULTATION: 06/05/2016 REFERRING PHYSICIAN: Dr. Sam. INDICATION: Congestive heart failure. HISTORY OF PRESENT ILLNESS: Mrs. Benavides is previously unknown to me but she was seen by my colleague Dr. Jimenez during her recent hospitalization approximately 1 week ago. She is a 70-year-old female who has established coronary artery disease. Based on her records from our facility, she underwent cardiac catheterization in 2014 that revealed occluded right coronary artery. No significant disease in the left-sided arteries. She also has valvular disease. Her recent echocardiogram performed on 05/30/2016 revealed LVEF about 40-45%, moderate aortic stenosis (mean transaortic gradient 21 mmHg) and mild aortic insufficiency, moderate mitral insufficiency and mild mitral stenosis (mean gradient 5 mmHg). She was recently hospitalized in our facility for shortness of breath. She was found to be extremely anemic with hemoglobin all the way down to 5. She received total 4 units of packed red blood cells. Surprisingly, subsequent EGD and colonoscopy did not find any obvious abnormalities to explain the degree of anemia. During that hospitalization, she had elevated troponin that peaked over 3. But she did not have any chest discomfort and there were no convincing ischemic abnormalities on EKG. She was just discharged home on Saturday and tells me that starting Saturday, she almost immediately started noticing shortness of breath and peripheral edema. By the time she came to our hospital yesterday, she was very short of breath. Denies any chest discomfort. There was no PND, orthopnea. PAST MEDICAL HISTORY 1. Coronary artery disease as above. 2. Valvular disease as above. 3. Type 2 diabetes. 4. History of anemia, iron deficiency. 5. There is a history of inflammatory bowel disease diagnosed in 2014. It does not appear that she has had any gastrointestinal follow-up though. SURGICAL HISTORY: Positive for recurrent EGD, colonoscopies and cholecystectomy. FAMILY HISTORY: Positive for coronary artery disease in relatives. SOCIAL HISTORY: The patient is , has four children. Smokes about two packs a week even though now she tells me that it is even less. There is no significant alcohol use. OUTPATIENT MEDICATIONS: - 20 mg a day of Lipitor - vitamin D 1000 units a day - vitamin B12 2 mg a day - iron sulfate 325 twice a day - fish oil - lisinopril 10 a day - mesalamine 1.2 grams twice a day - metoprolol 25 mg twice a day She reports allergies to LATEX and MORPHINE. REVIEW OF SYSTEMS: She denies any recent fever, chills, nausea or vomiting. No chest discomfort. Slowly progressive dyspnea as above. No dizziness, near/syncope. No abdominal pain. No diarrhea. No hematuria. Slowly progressive peripheral edema. The rest of review of systems is negative or as per HPI. Vital signs: Blood pressure 142/82, heart rate is in 80s and 90s. Saturation is 99% on 2 liters of oxygen by nasal cannula. She is afebrile. Her weight is documented at 77 kg which would be over 2 kg decrease since yesterday and her fluid balance is documented as almost 3 liters negative yesterday. She is alert and oriented and appropriate. Her JVP is not elevated. I do not appreciate any carotid bruit even though there is some radiation of her aortic murmur toward the carotid arteries. There is also blowing holosystolic murmur at the apex about 3/6 intensity. The intensity of aortic murmur is about 2/6. It is harsh in quality but the second heart sound over the aorta is clearly preserved. I do not appreciate gallop. Lungs are clear to auscultation with fair air movement, but no obvious crackles or wheezing. Abdomen is soft, nontender. No hepatosplenomegaly. Extremities have only 1+ edema if so, she has had elastic stockings overnight. Neurologically she is alert and oriented and appropriate and overall intact. LABORATORY DATA: As of this morning hemoglobin 10.4, hematocrit 34, platelet count 241,000. Basic metabolic panel is normal. She has three sets of troponin that are essentially unchanged at 0.28, 0.31 and 0.31. Her BNP is 2200, albumin is 2.9 and TSH is 1.7 Chest x-ray reveals congestive heart failure with vascular distribution. No distinct effusion, even though I cannot completely rule out that she has small right-sided effusion. Her ECG is unchanged from the previous tracings and reveals fairly subtle nonspecific repolarization abnormalities. ASSESSMENT/PLAN: Mrs. Benavides is a 70-year-old female who presents with congestive heart failure as evidenced by typical physical exam and very high BNP. It is shortly after she presented with severe anemia and received 4 units of packed red blood cells. It seems to me that the congestive heart failure could be related to fairly substantial amount of volume she received during her recent hospitalization, even though she tells me that when she was leaving home, that she did not have peripheral edema. It is possible that the nutrition at home is very different from hospital though and it could have contributed. It does not appear that there is an ischemic component even though the troponin is still mildly elevated. I suspect this is tail from her recent elevation during her severe anemia. At this point, I would continue diuresis. She is still not completely euvolemic but she is already feeling much better and her fluid balance was markedly negative yesterday. I would continue otherwise her chronic medications including NILSON inhibitors and beta-blockers that can be titrated to accomplish good heart rate. She has ischemic heart disease and has a component of mitral stenosis and consequently we should be aiming for relatively bradycardic rate. As far as coronary artery disease is concerned, she does have known occluded right coronary artery and no disease in left-sided circulation based on angiogram in 2015. I think it would be good to obtain the full report so we have it available in the hospital records. Besides treatment with statin, aspirin and beta hoda, I feel that it is absolutely imperative that she quit smoking and I expressed to her in unequivocal terms. It appears that she is at least trying. The other issue is of valvular disease. I cannot rule out that this severe mitral valve disease is actually more prominent than reported. This can be evaluated further on outpatient basis and I will leave it to Dr. Jimenez who will become her primary tray worker. The patient insists on being discharged home today but after discussion, she agreed to stay overnight. Apparently her great-granddaughter has her 1st birthday celebration tomorrow and she would not miss it for anything. Consequently I hope that we will accomplish additional diuresis today.
--- NOTE | 2016-06-05 10:44 | IPNPDOC ---
Subjective Date Seen The patient was seen on 06/05/16. Subjective Chief Complaint/HPI The patient is a 70-year-old female admitted with a reason for visit of CHF. Events since last encounter Sob has improved, no chest pain , no cough , no nausea or vomiting or diarrhea, no abdominal pain , nausea or vomiting . Objective Physical Examination General Exam: Positive: Alert, No Acute Distress Eye Exam: Positive: Conjunctiva & lids normal, EOMI, PERRLA, Negative: Sclera icteric ENT Exam: Positive: Atraumatic, Mucous membr. moist/pink, Pharynx Normal Neck Exam: Positive: Supple, Negative: JVD, thyromegaly Chest Exam: Positive: Normal air movement, Rales (bilateral bases.) Heart Exam: Positive: Normal S1, Normal S2, Rate Normal, Regular Rhythm, Negative: Murmurs, Rubs Telemetry: Positive: No significant arrhythmia Abdomen Exam: Positive: Normal bowel sounds, Soft, Negative: Hepatospenomegaly, Tenderness Extremity Exam: Positive: Normal pulses, Negative: Clubbing, Cyanosis, Edema Skin Exam: Positive: Nl turgor and temperature, Negative: Breakdown, Rash Assessment /Plan Problems (1) Acute on chronic combined systolic and diastolic CHF (congestive heart failure) Status: Acute Problem Text: EF of 40 to 45% with diastolic dysfunction will continue with lasix daily weights and fluid restriction. (2) Valvular heart disease Status: Chronic Problem Text: Has aortic stenosis and aortic regurgitation and mitral stenosis and mitral regurgitation will continue with diuresis. (3) Pulmonary hypertension Status: Chronic Problem Text: moderate pulmonary hypertension no right heart failure. (4) Diabetes Status: Chronic (5) HTN (hypertension) Status: Chronic (6) CAD (coronary artery disease) Status: Chronic Problem Text: has occluded RCA from angiogram in 2014. (7) Dyslipidemia Status: Chronic (8) Diverticulosis Status: Chronic (9) Internal hemorrhoids Status: Chronic (10) Anemia Status: Chronic Response to Treatment: Stable Problem Text: Had recent GIB requiring 4 units of PRBC had EGD and COLONOSCOPY on 05/31/16 showed gastritis, diverticulosis and internal hemorrhoids. VS, I&O, 24H, Fishbone Vital Signs/I&O Vital Signs Date Time Temp Pulse Resp B/P Pulse Ox O2 Delivery O2 Flow Rate FiO2 06/05/16 09:53 133/73 06/05/16 08:00 98.6 101 20 91 Room Air 06/05/16 04:00 2.0 I&O- Last 24 Hours up to 6 AM 06/05/16 06:00 Intake Total 425 ml Output Total 3600 ml Balance -3175 ml Laboratory Data 24H LABS Laboratory Tests 2 06/04/16 16:19: Aspartate Amino Transf (AST/SGOT) 26, Alanine Aminotransferase (ALT/SGPT) 81H, Alkaline Phosphatase 144H, Total Bilirubin 0.9, Direct Bilirubin 0.3H, Albumin 2.9L, Albumin/Globulin Ratio 1.00, Anion Gap 6L, Anisocytosis 1+, B-Type Natriuretic Peptide 2210H, White Blood Count 8.8, Red Blood Count 4.15, Hemoglobin 10.3L, Hematocrit 34.8L, Mean Corpuscular Volume 83.7, Mean Corpuscular Hemoglobin 24.8L, Mean Corpuscular Hemoglobin Concent 29.6L, Red Cell Distribution Width 18.2H, Platelet Count 238, Neutrophils (%) (Auto) 74.7H , Lymphocytes (%) (Auto) 18.1L, Monocytes (%) (Auto) 4.8, Eosinophils (%) (Auto ) 0.5, Basophils (%) (Auto) 0.4, Neutrophils # (Auto) 6.5, Lymphocytes # (Auto) 1.6, Monocytes # (Auto) 0.4, Eosinophils # (Auto) 0.0, Basophils # (Auto) 0.0, Calcium Level 8.7L, Creatine Kinase MB 2.9, Creatine Kinase MB Relative Index 3.02, Glomerular Filtration Rate > 60.0, Hypochromasia 2+, Large Unclassified Cells # 0.1, Large Unclassified Cells % 1.6, Platelet Estimate NORMAL, Polychromasia 1+, Thyroid Stimulating Hormone (TSH) 1.740, Thyroxine (T4) 11.6, Total Creatine Kinase 96, Total Protein 5.8L, Troponin I 0.28H 06/04/16 22:59: Creatine Kinase MB 2.7, Creatine Kinase MB Relative Index 2.84, Total Creatine Kinase 95, Troponin I 0.31H, Magnesium Level 2.1 06/05/16 05:23: Anion Gap 6L, Calcium Level 8.8, Creatine Kinase MB 3.1, Creatine Kinase MB Relative Index 3.69, Glomerular Filtration Rate 58.7, Total Creatine Kinase 84, Troponin I 0.31H, Magnesium Level 2.0, Blood Urea Nitrogen 19H, Creatinine 0.99 , Sodium Level 143, Potassium Level 3.7, Chloride Level 103, Carbon Dioxide Level 34H CBC/BMP Laboratory Tests 06/04/16 16:19 Red Blood Count 4.15, Mean Corpuscular Volume 83.7, Mean Corpuscular Hemoglobin 24.8 L, Mean Corpuscular Hemoglobin Concent 29.6 L, Red Cell Distribution Width 18.2 H, Neutrophils (%) (Auto) 74.7 H, Lymphocytes (%) (Auto) 18.1 L, Monocytes (%) (Auto) 4.8, Eosinophils (%) (Auto) 0.5, Basophils (%) (Auto) 0.4, Neutrophils # (Auto) 6.5, Lymphocytes # (Auto) 1.6, Monocytes # (Auto) 0.4, Eosinophils # (Auto) 0.0, Basophils # (Auto) 0.0 06/05/16 05:23 Red Blood Count 4.20, Mean Corpuscular Volume 83.1, Mean Corpuscular Hemoglobin 24.6 L, Mean Corpuscular Hemoglobin Concent 29.7 L, Red Cell Distribution Width 18.2 H, Calcium Level 8.8, Total Creatine Kinase 84 FIONA ENRIQUEZ MD Jun 05, 2016 10:44
[2016-06-05 15:30] VITALS: BP 125/58
[2016-06-06 02:00] VITALS: BP 124/59
[2016-06-06] MEDS: SLF 3 ML SYR IV SCH (05:53)
[2016-06-06 06:00] VITALS: BP 114/64
[2016-06-06] MEDS ORDERED: LOPR1TAB6 PO (06:23)
[2016-06-06] MEDS ORDERED: ALDA25TA2 PO (06:23)
[2016-06-06] MEDS ORDERED: LASI40TA PO (06:23)
[2016-06-06 07:28] LABS: MEAN CORPUSCULAR HEMOGLOBIN 24.6 pg (27.0-33.0); MEAN CORPUSCULAR HGB CONC 29.6 g/dl (32.0-36.5); MEAN CORPUSCULAR VOLUME 83.2 fl (80.0-96.0); RED CELL DISTRIBUTION WIDTH 18.1 % (11.5-14.5); WHITE BLOOD COUNT 9.1 K/mm3 (4.0-10.0)
[2016-06-06 08:05] LABS: CALCIUM LEVEL 8.8 MG/DL (8.8-10.2); CREATININE FOR GFR 1.03 MG/DL (0.55-1.02); GLOMERULAR FILTRATION RATE 56.1 (>39); POTASSIUM SERUM 3.4 MEQ/L (3.5-5.1)
[2016-06-06] MEDS ORDERED: POTASSIUM CHLORIDE 10 MEQ SR TABLET PO ONE (09:30)
[2016-06-06 09:37] VITALS: BP 114/64
[2016-06-06] MEDS: ATORVASTATIN 20 MG TAB PO SCH (09:37)
[2016-06-06] MEDS: FERROUS SULFATE 325MG TAB PO SCH (09:37)
[2016-06-06] MEDS: SENOKOT S TAB PO SCH (09:37)
[2016-06-06] MEDS: PANTOPRAZOLE 40MG TAB (PROTONIX) PO SCH (09:37)
[2016-06-06] MEDS: VITAMIN D 1,000 INTERNATIONAL UNITS TABLET PO SCH (09:37)
[2016-06-06] MEDS: FUROSEMIDE 20 MG/2 ML VIAL (J1940) IV SCH (09:37)
[2016-06-06] MEDS: LISINOPRIL 10 MG TAB PO SCH (09:37)
[2016-06-06] MEDS: METOPROLOL TART 50 MG TAB PO SCH (09:38)
[2016-06-06] MEDS: MESALAMINE 400 MG CAPSULE DELAYED RELEASE (DELZICOL) PO SCH (09:38)
[2016-06-06] MEDS: SPIRONOLACTONE 12.5MG PER 1/2 TABLET PO SCH (09:38)
[2016-06-06] MEDS: CYANOCOBALAMIN 500 MCG TAB PO SCH (09:38)
--- NOTE | 2016-06-06 15:39 | DSES ---
DATE OF ADMISSION: 06/04/2016 DATE OF DISCHARGE: 06/06/2016 PRIMARY CARE PROVIDER: MERARY Portillo PATIENT SAFETY SITTER: To followup with Nic Jimenez MD DISCHARGE DIAGNOSES: 1. Acute on chronic combined systolic and diastolic congestive heart failure with ejection fraction (EF) of 40-45%. 2. Valvular heart disease, mitral stenosis and mitral regurgitation, as well as aortic stenosis and aortic regurgitation. 3. Pulmonary hypertension, moderate. 4. Diabetes. 5. Hypertension. 6. Coronary artery disease. 7. Dyslipidemia. 8. Diverticulosis. 9. Internal hemorrhoids. 10. Chronic anemia with recent gastrointestinal (GI) bleed on 05/31/2016, requiring 4 units of packed red blood cells (PRBCs). 11. Gastritis. 12. Inflammatory bowel disease diagnosed in 2014. 13. Iron deficiency. DISCHARGE MEDICATIONS: - Lasix 40 mg by mouth daily - spironolactone 12.5 mg by mouth daily - metoprolol 50 mg by mouth twice a day - Tylenol 650 mg every 4 hours as needed for pain - atorvastatin 20 mg by mouth daily - vitamin D 1000 units by mouth daily - vitamin B12 2000 mcg by mouth daily - ferrous sulfate 325 mg by mouth twice a day - fish oil one capsule by mouth daily - lisinopril 10 mg by mouth daily - mesalamine one tablet by mouth twice a day HOSPITAL COURSE: This is a 70-year-old female who was recently admitted to the hospital prior to this admission on 05/29/2016, for GI bleed requiring 4 units of PRBC transfusion. At that time, she had undergone EGD and colonoscopy and was found to have gastritis, diverticulosis, and internal hemorrhoids. During that admission, patient was also diagnosed with non-ST elevation myocardial infarction (NSTEMI) secondary to demand ischemia from severe anemia. After discharge home, she started having gradually worsening shortness of breath and dyspnea on exertion so came back to the hospital on 06/04/2016, and was found to have fluid overload and congestive heart failure. Patient had a recent echo on 05/30/2016, which showed that she had chronic systolic and diastolic congestive heart failure with an EF of 40-45% and multivalvular heart disease, both mitral and aortic valve. Patient was started on diuresis with IV Lasix. Patient responded well with more than 2.5 liters negative daily with resolution of her symptoms. Patient was seen by Dr. Jimenez and Dr. Louis from cardiology and her metoprolol dosage was increased. She was also started on spironolactone. At present, her symptoms have resolved, she is functionally at baseline with stable vital signs and is going to be discharged home. PHYSICAL EXAMINATION: VITAL SIGNS: Temperature 98.4, pulse 76, respiratory rate 20, blood pressure 114/64, pulse oximetry 94% in room air. GENERAL: Patient awake, alert, oriented times three, laying down in bed, in no acute distress. HEENT: Normocephalic, atraumatic. Moist mucous membranes. Anicteric eyes. CHEST: Clear to auscultation. CARDIOVASCULAR: There is both systolic and diastolic murmur heard, no rub or gallop. ABDOMEN: Soft, nontender. Bowel sounds present. EXTREMITIES: No edema. LABORATORY DATA: WBC 9.1, hemoglobin 10.9, platelets 233, sodium 143, potassium 3.4 replaced, chloride 102, bicarbonate 31, BUN 27, creatinine 1.03, magnesium 2, calcium 8.8, glucose 101, BNP 1580, troponin 0.17. Chest xray: Congestive heart failure (CHF) pattern with slight blunting of right lateral pleural angle and pulmonary vascular congestion. DISPOSITION: Patient is discharged home in a stable condition. DISCHARGE INSTRUCTIONS: Patient to followup with Dr. Jimenez in 1 week. Patient to followup with primary care provider in 2 weeks. 2 gram sodium diet, fluid restriction 1.8 liters in 24 hours. Activity as tolerated.
--- NOTE | 2016-06-07 21:48 | ECGEPIP ---
Stationary ECG Study [facility] Test Date: 2016-06-06 Pat Name: AGUSTO PA Department: Room: [place] [address] Gender: F Church Administrator: CARLOS A : 1945 Requested By: Jasmin Louis Order Number: [id number] Reading MD: Jasmin Louis Measurements Intervals [place] Rate: 72 P: 55 MT: 135 QRS: -3 QRSD: 90 T: 10 QT: 406 QTc: 446 Interpretive Statements SINUS RHYTHM LEFT VENTRICULAR HYPERTROPHY AND ST-T CHANGE PRECORDIAL T WAVE INVERSIONS, CONSIDER ISCHEMIA Electronically Signed On 06-07-2016 21:48:28 EDT by Jasmin Louis
== END 2016-06-06 10:57 | disposition home or self-care (01) | DRG 293 ==
LOC: M ED 15:49 → M ED INP 18:24 → M PCU 20:54 → M MSPAV 06-06 01:50
PROVIDERS: ADMIT Hospitalist; ATTEND Internal Medicine Nephrology
DX: I50.43 Acute on chronic combined systolic (congestive) and diastolic (congestive) heart failure (principal); E11.9 Type 2 diabetes mellitus without complications; I10 Essential (primary) hypertension; I25.10 Atherosclerotic heart disease of native coronary artery without angina pectoris; E78.5 Hyperlipidemia, unspecified; K64.8 Other hemorrhoids; K57.90 Diverticulosis of intestine, part unspecified, without perforation or abscess without bleeding; D50.9 Iron deficiency anemia, unspecified; I27.2 Other secondary pulmonary hypertension; I35.0 Nonrheumatic aortic (valve) stenosis; I34.0 Nonrheumatic mitral (valve) insufficiency; Z79.899 Other long term (current) drug therapy; Z90.49 Acquired absence of other specified parts of digestive tract

== ENCOUNTER → 2016-10-04 | Outpatient (REF) | payer MEDICARE ==
[~2016-10-04] MED LIST changes: +ALDA25TA2 PO; +CIPR-249 PO; -CIPR500T89 PO; +LIAL1.2T PO; +LOPR1TAB6 PO; -METF500T PO; +METF500T13 PO; +METO-346 PO; +METO1TAB87 PO; +VITA10002 PO; -VITA100037 PO; +VITA100067 PO
== END ==
LOC: M LAB REF 17:12
PROVIDERS: ATTEND Nurse Practitioner Adult Health
DX: D50.9 Iron deficiency anemia, unspecified (principal)

== ENCOUNTER → 2017-02-20 | Outpatient (REF) | payer MEDICARE ==
[2017-02-20 15:16] LABS: PERCENT SATURATION 15.2 % (13.2-45.0)
== END ==
LOC: M LAB REF 13:37
PROVIDERS: ATTEND Nurse Practitioner Adult Health
DX: D50.9 Iron deficiency anemia, unspecified (principal)

== ENCOUNTER → 2017-11-21 | Outpatient (CLI) | payer MEDICARE ==
[2017-11-21 07:07] LABS: BASO # 0.1 10^3/uL (0.0-0.2); BASO % 0.5 % (0.0-1.0); EOS # 0.1 10^3/uL (0.0-0.50); EOS % 1.1 % (0.0-3.0); HEMATOCRIT 31.1 % (36.0-47.0); HEMOGLOBIN 8.8 g/dl (12.0-15.5); IMMATURE GRANULOCYTE % 0.4 % (0-3.0); LYMPH % 30.3 % (24.0-44.0); MEAN CORPUSCULAR HEMOGLOBIN 22.7 pg (27.0-33.0); MEAN CORPUSCULAR HGB CONC 28.3 g/dl (32.0-36.5); MEAN CORPUSCULAR VOLUME 80.4 fl (80.0-96.0); MONO # 0.7 10^3/uL (0.0-0.8); MONO % 7.5 % (0.0-5.0); NEUTROPHILS % 60.2 % (36.0-66.0); PLATELET COUNT, AUTOMATED 303 10^3/uL (150-450); RED BLOOD COUNT 3.87 10^6/uL (4.00-5.40); RED CELL DISTRIBUTION WIDTH 17.4 % (11.5-14.5); WHITE BLOOD COUNT 9.9 10^3/uL (4.0-10.0)
[2017-11-21 07:27] LABS: ANION GAP 10 MEQ/L (8-16); BLOOD UREA NITROGEN 30 MG/DL (7-18); CARBON DIOXIDE LEVEL 28 MEQ/L (21-32); CHLORIDE LEVEL 106 MEQ/L (98-107); CREATININE FOR GFR 1.36 MG/DL (0.55-1.30); GLOMERULAR FILTRATION RATE 40.5 (>39); GLUCOSE, FASTING 121 MG/DL (70-100); POTASSIUM SERUM 4.4 MEQ/L (3.5-5.1); SODIUM LEVEL 144 MEQ/L (136-145)
== END ==
LOC: M LAB 06:40
DX: I50.22 Chronic systolic (congestive) heart failure (principal)
CPT/HCPCS: 36415

== ENCOUNTER → 2017-11-26 | Outpatient (CLI) | payer MEDICARE ==
[2017-11-26 20:03] LABS: CREATININE FOR GFR 1.31 MG/DL (0.55-1.30); GLOMERULAR FILTRATION RATE 42.3 (>39)
== END ==
LOC: M SMT 15:40
DX: I50.9 Heart failure, unspecified (principal); E11.51 Type 2 diabetes mellitus with diabetic peripheral angiopathy without gangrene; I25.119 Atherosclerotic heart disease of native coronary artery with unspecified angina pectoris; I35.0 Nonrheumatic aortic (valve) stenosis
CPT/HCPCS: 82565

== ENCOUNTER → 2018-02-11 | Outpatient (REF) | payer MEDICARE ==
[2018-02-11 17:55] LABS: FERRITIN 12 NG/ML (8-252)
[2018-02-11 17:55] LABS: IRON (FE) 15 UG/DL (50-170)
[2018-02-11 18:08] LABS: RETIC HEMOGLOBIN EQUIVALENT 18.9 pg (24-36); RETICULOCYTE # 63.7 10^9/L (17-77); RETICULOCYTE % 1.9 % (0.5-1.5)
[2018-02-12 14:31] LABS: IMMEDIATE SPIN CROSSMATCH 1 2
== END ==
LOC: M LAB REF 17:02
DX: D50.9 Iron deficiency anemia, unspecified (principal)
CPT/HCPCS: 83540

== ENCOUNTER 2018-02-12 13:03 | Outpatient (CLI) | payer MEDICARE ==
[2018-02-12] MEDS: ACETAMINOPHEN TAB 650MG DOSE (2X325MG) PO (15:06)
[2018-02-12] MEDS: diphenhydrAMINE 50 MG CAP PO (15:06)
== END 2018-02-12 16:30 | disposition home or self-care (01) ==
LOC: M OPCLI4PR 16:30 → M MS4PR 13:34
DX: D50.9 Iron deficiency anemia, unspecified (principal); Z88.8 Allergy status to other drugs, medicaments and biological substances
CPT/HCPCS: 36430

== ENCOUNTER → 2018-02-26 | Outpatient (REF) | payer MEDICARE ==
[2018-02-26 18:45] LABS: FERRITIN 7 NG/ML (8-252)
[2018-02-26 18:45] LABS: IRON (FE) 14 UG/DL (50-170)
== END ==
LOC: M LAB REF 17:07
DX: D50.9 Iron deficiency anemia, unspecified (principal)
CPT/HCPCS: 83540

== ENCOUNTER 2018-03-05 19:10 | Emergency (ER) | payer MEDICARE ==
[~2018-03-05 19:10] MED LIST changes: -AMLO5TAB2 PO; +AMLO5TAB4 PO
[2018-03-05] MEDS ORDERED: NS 1,000 ML IV ONE (19:45)
[2018-03-05 20:00] LABS: BASO % 0.4 % (0.0-1.0); EOS # 0.1 10^3/uL (0.0-0.50); EOS % 1.2 % (0.0-3.0); HEMATOCRIT 32.4 % (36.0-47.0); LYMPH # 3.1 10^3/uL (1.5-4.5); LYMPH % 31.4 % (24.0-44.0); MEAN CORPUSCULAR HEMOGLOBIN 22.4 pg (27.0-33.0); MEAN CORPUSCULAR HGB CONC 27.8 g/dl (32.0-36.5); MEAN CORPUSCULAR VOLUME 80.6 fl (80.0-96.0); MONO # 0.5 10^3/uL (0.0-0.8); MONO % 5.2 % (0.0-5.0); NEUTROPHILS # 6.1 10^3/uL (1.8-7.7); NEUTROPHILS % 61.5 % (36.0-66.0); PLATELET COUNT, AUTOMATED 368 10^3/uL (150-450); RED BLOOD COUNT 4.02 10^6/uL (4.00-5.40); WHITE BLOOD COUNT 9.9 10^3/uL (4.0-10.0)
[2018-03-05] MEDS ORDERED: NS 500 ML IV ONE (20:00)
[2018-03-05 20:06] LABS: CALCIUM LEVEL 8.3 MG/DL (8.8-10.2); CREATININE FOR GFR 1.48 MG/DL (0.55-1.30); GLOMERULAR FILTRATION RATE 36.7 (>39); POTASSIUM SERUM 4.6 MEQ/L (3.5-5.1)
[2018-03-05 21:46] VITALS: BP 149/58
--- NOTE | 2018-03-08 10:33 | ECGEPIP ---
Stationary ECG Study [facility] - ED Test Date: 2018-03-05 Pat Name: AGUSTO PA Department: Room: - Gender: F Backfiller: cheikh : 1945 Requested By: MEREDITH MANNING Order Number: [id number] Reading MD: Stephanie Daniel Measurements Intervals [place] Rate: 90 P: -7 WV: 110 QRS: 23 QRSD: 85 T: 31 QT: 374 QTc: 459 Interpretive Statements SINUS RHYTHM WITH SHORT WV INTERVAL WITH OCCASIONAL SUPRAVENTRICULAR PREMATURE C COMPLEXES PROLONGED QTC CW 06/06/16 RATE INCREASED Electronically Signed On 03-08-2018 10:32:59 EST by Stephanie Daniel
== END 2018-03-05 22:03 | disposition home or self-care (01) ==
LOC: M ED 19:10
DX: R55 Syncope and collapse (principal); I10 Essential (primary) hypertension; E78.5 Hyperlipidemia, unspecified; D50.9 Iron deficiency anemia, unspecified; I51.9 Heart disease, unspecified; Z79.899 Other long term (current) drug therapy; Z91.040 Latex allergy status; Z88.5 Allergy status to narcotic agent; Z88.8 Allergy status to other drugs, medicaments and biological substances

== ENCOUNTER 2018-04-28 11:51 | Inpatient (IN) | payer MEDICARE ==
[~2018-04-28] VITALS: Ht 167.6 cm; Wt 84.0 kg
[~2018-04-28 11:51] MED LIST changes: -AMLO5TAB4 PO; +AMLO5TAB6 PO; -LASI40TA PO; +LASI40TA9 PO
[2018-04-28 12:30] LABS: BASO % 0.5 % (0.0-1.0); EOS % 0.4 % (0.0-3.0); LYMPH # 1.6 10^3/uL (1.5-4.5); LYMPH % 21.4 % (24.0-44.0); MEAN CORPUSCULAR HEMOGLOBIN 18.9 pg (27.0-33.0); MEAN CORPUSCULAR HGB CONC 26.1 g/dl (32.0-36.5); MEAN CORPUSCULAR VOLUME 72.3 fl (80.0-96.0); MONO # 0.5 10^3/uL (0.0-0.8); MONO % 6.4 % (0.0-5.0); NEUTROPHILS # 5.2 10^3/uL (1.8-7.7); NEUTROPHILS % 70.6 % (36.0-66.0); PLATELET COUNT, AUTOMATED 327 10^3/uL (150-450); RED BLOOD COUNT 2.49 10^6/uL (4.00-5.40); WHITE BLOOD COUNT 7.4 10^3/uL (4.0-10.0)
[2018-04-28 12:33] LABS: HEMOGLOBIN 4.7 g/dl (12.0-15.5)
--- NOTE | 2018-04-28 12:34 | REP ---
Chest one-view HISTORY: Cough Comparison: 06/04/2016 The lungs are clear. The cardiac silhouette is enlarged. The pulmonary vasculature is normal in appearance. Impression: Cardiomegaly. Electronically Signed by Dayday Lima MD 04/28/2018 12:25 P
[2018-04-28 12:43] LABS: INR 0.99; PROTHROMBIN TIME 13.2 SECONDS (12.1-14.4)
[2018-04-28 12:44] LABS: PARTIAL THROMBOPLASTIN TIME 28.1 SECONDS (25.4-37.6)
[2018-04-28] MEDS ORDERED: NS 1,000 ML IV SCH (12:45)
[2018-04-28 13:12] LABS: ALBUMIN 3.1 GM/DL (3.2-5.2); ALT/SGPT 16 U/L (12-78); BILIRUBIN,DIRECT < 0.1 MG/DL (0.0-0.2); BILIRUBIN,TOTAL 0.4 MG/DL (0.2-1.0); BLOOD UREA NITROGEN 30 MG/DL (7-18); CALCIUM LEVEL 8.6 MG/DL (8.8-10.2); CARBON DIOXIDE LEVEL 28 MEQ/L (21-32); CHLORIDE LEVEL 105 MEQ/L (98-107); CPK CREATINE PHOSPHOKINASE 68 U/L (26-192); CREATININE FOR GFR 1.35 MG/DL (0.55-1.30); GLOMERULAR FILTRATION RATE 40.8 (>39); GLUCOSE, FASTING 104 MG/DL (70-100); POTASSIUM SERUM 4.2 MEQ/L (3.5-5.1); SODIUM LEVEL 140 MEQ/L (136-145); TOTAL PROTEIN 6.2 GM/DL (6.4-8.2); TROPONIN I < 0.02 NG/ML (< 0.10)
[2018-04-28] MEDS ORDERED: LASI20TA3 PO (13:12)
[2018-04-28] MEDS ORDERED: SPIR50TA4 PO (13:12)
[2018-04-28] MEDS ORDERED: D5W/0.9% SODIUM CHLORIDE 1,000 ML IV SCH (15:44)
[2018-04-28] MEDS ORDERED: BISACODYL 5 MG TAB PO PRN (15:45)
[2018-04-28] MEDS ORDERED: ACETAMINOPHEN TAB 650MG DOSE (2X325MG) PO PRN (15:45)
[2018-04-28] MEDS ORDERED: ONDANSETRON 4 MG TAB (S0181) PO PRN (15:45)
--- NOTE | 2018-04-28 16:30 | HPEPDOC ---
[facility] Medical History & Physical Date of Admission Apr 28, 2018 History and Physical CHIEF COMPLAINT: [sob and fatigue ] HISTORY OF PRESENT ILLNESS: This is a 72 YO female with multiple past medical hx on plavix and aspirin ( per ed , patient said she doesn't remember ) who presented to the ed for sob and fatigue for the past 2 weeks, so she went to her pcp today, who check her blood and sent her to the ed. Patient denied fever, chills, chest pain, weight loss, decreased appetite , nausea, vomiting, BRBPR, bleeding or bruising any where. REVIEW OF SYSTEMS: All 14 points ROS is negative except what's stated in HPI PHYSICAL EXAMINATION: GEN: no acute distress, pale HEENT : no lymphadenopathy, PERRLA , no oropharyngeal erythema or exudates CVS: Normal S1/s2, no murmurs, rubs or gallops, RESP: Lungs are clear to auscultation bilaterally, no crackles, wheezes or rhonchi Abd: soft, nontender, nondistended, + BS MSK: full ROM, 5/5 strength in all extremities Integumentary: no rash or bruises Neuro: AOAx3, no focal deficit, poor memory psych: normal mood, good judgement and cooperative PAST MEDICAL HISTORY: Iron deficiency anemia. History of GI bleed. History of transfusion. Dyslipidemia. Vitamin D deficiency. Hypertension. Type 2 diabetes, diet controlled. History of murmur. History of coronary artery disease. PAST SURGICAL HISTORY: Cholecystectomy. Left cataract. EGD. Colonoscopy: Inflammatory bowel disease, external hemorrhoids. SOCIAL HISTORY: Lives at home. with four children. Retired, smokes 1/2 PPD for 58 yrs. Denies alcohol use. Denies illicit drug use. FAMILY HISTORY: mother , father , son - Coronary artery disease., son - cva ,htn ALLERGIES: Please see below. HOME MEDICATIONS: Please see below. LABORATORY DATA: See below. IMAGING: CXR - cardiomegaly MICROBIOLOGY: Please see below. ASSESSMENT: anemia 2/2 chronic blood loss likely 2/2 upper GIB (ddx esophagitis, gastritis, angiodysplasia, or malignancy)- since no blood in stool, but guaiac positive - patient has risk being on aspirin and plavix hx of iron def anemia htn dm2 has PLAN: protonix 40mg iv bid npo for now GI consult keep type and screen active hold any NSAIDS, AC or antiplts f/u repeat cbc after transfusion is completed and AM cbc hold all BP meds for now - bp dropped earlier gentle hydration for now - monitor closely f/u hba1c - may ne inaccurate due to blood loss iss and hypoglycemic protocol f/u anemia profile dvt ppx - scd full code, from home Vital Signs Vital Signs Date Time Temp Pulse Resp B/P (MAP) Pulse Ox O2 Delivery O2 Flow Rate FiO2 04/28/18 15:46 79 99 04/28/18 15:30 136/58 (84) 04/28/18 12:25 Room Air 04/28/18 11:52 96.7 20 Laboratory Data Labs 24H Laboratory Tests 2 04/28/18 12:22: Immature Granulocyte % (Auto) 0.7, White Blood Count 7.4, Red Blood Count 2.49L, Hemoglobin 4.7*L, Hematocrit 18.0L, Mean Corpuscular Volume 72.3L, Mean Corpuscular Hemoglobin 18.9L, Mean Corpuscular Hemoglobin Concent 26.1L, Red Cell Distribution Width 21.2H, Platelet Count 327, Neutrophils (%) (Auto) 70.6H, Lymphocytes (%) (Auto) 21.4L, Monocytes (%) (Auto) 6.4H, Eosinophils (%) (Auto) 0.4, Basophils (%) (Auto) 0.5, Neutrophils # (Auto) 5.2, Lymphocytes # (Auto) 1.6, Monocytes # (Auto) 0.5, Eosinophils # (Auto) 0.0, Basophils # (Auto) 0.0, Nucleated Red Blood Cells % (auto) 1.9H, Prothrombin Time 13.2, Prothromb Time International Ratio 0.99, Activated Partial Thromboplast Time 28.1, Anion Gap 7L, Glomerular Filtration Rate 40.8, Calcium Level 8.6L, Aspartate Amino Transf (AST/SGOT) 13, Alanine Aminotransferase (ALT/SGPT) 16, Alkaline Phosphatase 106, Total Bilirubin 0.4, Direct Bilirubin < 0.1, Total Creatine Kinase 68, Creatine Kinase MB 2.0, Creatine Kinase MB Relative Index 2.50, Troponin I < 0.02, Total Protein 6.2L, Albumin 3.1L, Albumin/Globulin Ratio 1.00, Thyroid Stimulating Hormone (TSH) 2.280, Thyroxine (T4) 10.0 CBC/BMP Laboratory Tests 04/28/18 12:22 Red Blood Count 2.49 L, Mean Corpuscular Volume 72.3 L, Mean Corpuscular Hemoglobin 18.9 L, Mean Corpuscular Hemoglobin Concent 26.1 L, Red Cell Distribution Width 21.2 H, Neutrophils (%) (Auto) 70.6 H, Lymphocytes (%) (Auto) 21.4 L, Monocytes (%) (Auto) 6.4 H, Eosinophils (%) (Auto) 0.4, Basophils (%) (Auto) 0.5, Neutrophils # (Auto) 5.2, Lymphocytes # (Auto) 1.6, Monocytes # (Auto) 0.5, Eosinophils # (Auto) 0.0, Basophils # (Auto) 0.0 Home Medications Scheduled Atorvastatin Calcium (Lipitor) 20 Mg Tab, 20 MG PO DAILY Cholecalciferol (Vitamin D) 1,000 Unit Tab, 1,000 UNIT PO DAILY Ferrous Sulfate (Ferrous Sulfate) 325 Mg Tab, 325 MG PO BID Fish Oil (Fish Oil 1000 mg) 1 Cap Cap, 1 CAP PO DAILY Furosemide (Lasix) 20 Mg Tab, 10 MG PO DAILY Lisinopril (Lisinopril) 10 Mg Tab, 10 MG PO DAILY Spironolactone (Spironolactone) 50 Mg Tab, 50 MG PO BID Scheduled PRN Acetaminophen (Tylenol) 325 Mg Tab, 650 MG PO Q4H PRN for PAIN Allergies Coded Allergies: Latex (Unverified Allergy, Mild, Rash, 06/24/14) Pt reports " I don't think I am allergic but I tend to breakout around latex" Valacyclovir (Verified Allergy, Unknown, 02/12/18) Morphine (Verified Adverse Reaction, Intermediate, DROP IN BP, 04/09/16) JEVON BISWAS MD Apr 28, 2018 16:30
[2018-04-28 17:15] VITALS: BP 138/50
[2018-04-28] MEDS ORDERED: NYSTATIN 100,000 UNITS/GM TOPICAL PWD 15 GM TOP PRN (17:30)
[2018-04-28] MEDS: HumaLOG INSULIN (NovoLOG) PER UNIT SC SCH (18:00)
[2018-04-28] MEDS ORDERED: GLUCOSE 4 GM CHEW TABLET PO PRN (18:15)
[2018-04-28] MEDS ORDERED: DEXTROSE 50% 50 ML SYRINGE IV PRN (18:15)
[2018-04-28] MEDS ORDERED: GLUCAGON FOR INJ 1 MG VIAL (J1610) SC PRN (18:15)
[2018-04-28 20:00] VITALS: BP 142/63
[2018-04-28] MEDS: FERROUS SULFATE 325MG TAB PO SCH (20:52)
[2018-04-28] MEDS: PANTOPRAZOLE 40MG INJ (PROTONIX) (C9113) IV SCH (20:52)
[2018-04-28 21:54] LABS: BASO # 0.1 10^3/uL (0.0-0.2); BASO % 0.7 % (0.0-1.0); EOS # 0.1 10^3/uL (0.0-0.50); EOS % 0.7 % (0.0-3.0); HEMATOCRIT 22.9 % (36.0-47.0); LYMPH # 1.5 10^3/uL (1.5-4.5); LYMPH % 21.3 % (24.0-44.0); MEAN CORPUSCULAR HEMOGLOBIN 22.6 pg (27.0-33.0); MEAN CORPUSCULAR HGB CONC 28.4 g/dl (32.0-36.5); MEAN CORPUSCULAR VOLUME 79.5 fl (80.0-96.0); MONO # 0.6 10^3/uL (0.0-0.8); MONO % 7.9 % (0.0-5.0); NEUTROPHILS % 68.8 % (36.0-66.0); PLATELET COUNT, AUTOMATED 259 10^3/uL (150-450); RED BLOOD COUNT 2.88 10^6/uL (4.00-5.40); WHITE BLOOD COUNT 7.2 10^3/uL (4.0-10.0)
[2018-04-28 22:06] LABS: HEMOGLOBIN 6.5 g/dl (12.0-15.5)
[2018-04-28 23:59] VITALS: BP 154/69
[2018-04-29 03:48] VITALS: BP 167/72
[2018-04-29] MEDS: HumaLOG INSULIN (NovoLOG) PER UNIT SC SCH ×4 (06:00→20:46)
[2018-04-29 06:09] LABS: CALCIUM LEVEL 8.4 MG/DL (8.8-10.2); CREATININE FOR GFR 1.06 MG/DL (0.55-1.30); GLOMERULAR FILTRATION RATE 53.9 (>39); MAGNESIUM LEVEL 2.2 MG/DL (1.8-2.4); POTASSIUM SERUM 4.1 MEQ/L (3.5-5.1)
[2018-04-29 06:13] LABS: PERCENT SATURATION 28.5 % (13.2-45.0)
[2018-04-29 06:16] LABS: HEMOGLOBIN A1c 5.6 %
[2018-04-29 06:17] LABS: HEMATOCRIT 29.4 % (36.0-47.0); MEAN CORPUSCULAR HGB CONC 31.6 g/dl (32.0-36.5); PLATELET COUNT, AUTOMATED 243 10^3/uL (150-450); RED BLOOD COUNT 3.72 10^6/uL (4.00-5.40)
[2018-04-29 06:19] LABS: HEMOGLOBIN 9.3 g/dl (12.0-15.5)
[2018-04-29 08:00] VITALS: BP 166/72
[2018-04-29 09:27] LABS: FOLATE 13.8 NG/ML (>5.4)
[2018-04-29] MEDS: FERROUS SULFATE 325MG TAB PO SCH ×2 (09:43→20:46)
[2018-04-29] MEDS: OMEGA-3 1000MG CAPSULE PO SCH (09:43)
[2018-04-29] MEDS: ATORVASTATIN 20 MG TAB PO SCH (09:44)
[2018-04-29 12:00] VITALS: BP 144/65
[2018-04-29 12:38] LABS: HEMOGLOBIN 9.5 g/dl (12.0-15.5)
[2018-04-29 16:00] VITALS: BP 156/70
[2018-04-29] MEDS ORDERED: IPRATROPIUM 0.5MG/ALBUTEROL 2.5MG INH SOL UD 3ML (DUONEB)(J7620) NEB PRN (16:00)
[2018-04-29 18:02] LABS: HEMATOCRIT 30.2 % (36.0-47.0); HEMOGLOBIN 9.1 g/dl (12.0-15.5)
--- NOTE | 2018-04-29 18:52 | ECGEPIP ---
Stationary ECG Study 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
--- NOTE | 2018-04-29 18:56 | IPNPDOC ---
Text Note Date of Service The patient was seen on 04/29/18. NOTE Subjective: Patient was seen and examined at the bedside. Clinic patient denies any lightheadedness, dizziness, chest pain, shortness of breath or palpitations. De nies any cough. Denies any nausea, vomiting, abdominal pain, constipation, diarrhea or any blood in her stool. Denies any discomfort with urination. Objective: Vitals (See below) General: Lying in bed, no acute distress, comfortable, AAOx3 HEENT: NC, AT CVS: RRR, +S1S2 Lungs: Fair air entry b/l, -w/r/r Abdomen: Soft, ND, NT, +BSx4 Extremities: - Edema, - Calf tenderness Assessment and plan: Symptomatic anemia - etiology unclear - Patient had symptoms of anemia; however likely occurred chronically - Does not report any acute bleeding or change in stool - s/p 4 units PRBC - Hg has improved appropriately and remains stable; will continue to follow hemoglobin every 6 hours - Iron panel consistent with deficiency - c/w Ferrous sulfate - c/w Protonix - Will consult surgery for possible EGD; will continue to hold ASA / Plavix HTN - BP moderately elevated - Will start Lisinopril - Will hold Spironolactone / Furosemide Diastolic CHF - No evidence of fluid overload - ECHO 05/30: G1DD, AV sclerosis, Moderate , Mild Aortic regurgitation, Mild- moderate TR with moderate pulmonary HTN - Will hold Spironolactone / Furosemide CAD - Hold ASA / Plavix - c/w Atorvastatin DM2 - Currently does not take medications as an outpatient - c/w ISS GI prophylaxis - c/w Protonix DVT prophylaxis - c/w SCDs VS,Fishbone, I+O VS, Fishbone, I+O Laboratory Tests 04/28/18 21:36 Red Blood Count 2.88 L, Mean Corpuscular Volume 79.5 L, Mean Corpuscular Hemoglobin 22.6 L, Mean Corpuscular Hemoglobin Concent 28.4 L, Red Cell Distribution Width 23.0 H, Neutrophils (%) (Auto) 68.8 H, Lymphocytes (%) (Auto) 21.3 L, Monocytes (%) (Auto) 7.9 H, Eosinophils (%) (Auto) 0.7, Basophils (%) (Auto) 0.7, Neutrophils # (Auto) 5.0, Lymphocytes # (Auto) 1.5, Monocytes # (Auto) 0.6, Eosinophils # (Auto) 0.1, Basophils # (Auto) 0.1 04/29/18 05:33 Red Blood Count 3.72 L, Mean Corpuscular Volume 79.0 L, Mean Corpuscular Hemoglobin 25.0 L, Mean Corpuscular Hemoglobin Concent 31.6 L, Red Cell Distribution Width 21.3 H, Calcium Level 8.4 L 04/29/18 12:12 04/29/18 17:54 Vital Signs Date Time Temp Pulse Resp B/P (MAP) Pulse Ox O2 Delivery O2 Flow Rate FiO2 04/29/18 16:00 98.0 94 18 156/70 (98) 92 04/28/18 12:25 Room Air I&O- Last 24 Hours up to 6 AM 04/29/18 06:00 Intake Total 0 ml Output Total 500 ml Balance -500 ml ARIE ALEXANDER MD Apr 29, 2018 18:56
[2018-04-29 20:00] VITALS: BP 156/78
[2018-04-29] MEDS ORDERED: IPRATROPIUM 0.5MG/ALBUTEROL 2.5MG INH SOL UD 3ML (DUONEB)(J7620) NEB SCH (20:00)
[2018-04-29] MEDS: PANTOPRAZOLE 40MG INJ (PROTONIX) (C9113) IV SCH (20:46)
[2018-04-30] VITALS: BP 147/65
[2018-04-30 00:59] LABS: HEMATOCRIT 30.3 % (36.0-47.0); HEMOGLOBIN 9.1 g/dl (12.0-15.5)
[2018-04-30 04:00] VITALS: BP 138/64
[2018-04-30 06:20] LABS: HEMATOCRIT 28.2 % (36.0-47.0); HEMOGLOBIN 8.7 g/dl (12.0-15.5); MEAN CORPUSCULAR HEMOGLOBIN 24.4 pg (27.0-33.0); MEAN CORPUSCULAR HGB CONC 30.9 g/dl (32.0-36.5); MEAN CORPUSCULAR VOLUME 79.2 fl (80.0-96.0); PLATELET COUNT, AUTOMATED 231 10^3/uL (150-450); RED BLOOD COUNT 3.56 10^6/uL (4.00-5.40); WHITE BLOOD COUNT 10.2 10^3/uL (4.0-10.0)
[2018-04-30 06:40] LABS: BLOOD UREA NITROGEN 19 MG/DL (7-18); CALCIUM LEVEL 8.5 MG/DL (8.8-10.2); CARBON DIOXIDE LEVEL 28 MEQ/L (21-32); CHLORIDE LEVEL 106 MEQ/L (98-107); CREATININE FOR GFR 0.95 MG/DL (0.55-1.30); GLOMERULAR FILTRATION RATE > 60.0 (>39); GLUCOSE, FASTING 100 MG/DL (70-100); POTASSIUM SERUM 4.2 MEQ/L (3.5-5.1); SODIUM LEVEL 140 MEQ/L (136-145)
[2018-04-30] MEDS: HumaLOG INSULIN (NovoLOG) PER UNIT SC SCH ×4 (07:30→20:34)
[2018-04-30 08:00] VITALS: BP 140/68
[2018-04-30] MEDS: FERROUS SULFATE 325MG TAB PO SCH ×2 (08:13→20:34)
[2018-04-30] MEDS: LISINOPRIL 10 MG TAB PO SCH (08:13)
[2018-04-30] MEDS: OMEGA-3 1000MG CAPSULE PO SCH (08:13)
[2018-04-30] MEDS: ATORVASTATIN 20 MG TAB PO SCH (08:13)
--- NOTE | 2018-04-30 08:39 | IPNPDOC ---
Text Note Date of Service The patient was seen on 04/30/18. NOTE No acute events overnight. She denies any visible bleeding. Last scopes were in December, and she believes that there was something that they had to cauterize in her stomach during that scope. No problems in her colon other than a polyp that was removed. VSSAF NAD a) 72y/o female with suspected GI bleed P) no changes to H+P, consent is signed and on the chart. Dr. Grimaldo will do her procedure early this afternoon. Jake Moffett DO VS,Fishbone, I+O VS, Fishbone, I+O Laboratory Tests 04/29/18 12:12 04/29/18 17:54 04/30/18 00:15 04/30/18 05:39 Red Blood Count 3.56 L, Mean Corpuscular Volume 79.2 L, Mean Corpuscular Hem oglobin 24.4 L, Mean Corpuscular Hemoglobin Concent 30.9 L, Red Cell Distribution Width 21.3 H, Calcium Level 8.5 L Vital Signs Date Time Temp Pulse Resp B/P (MAP) Pulse Ox O2 Delivery O2 Flow Rate FiO2 04/30/18 08:00 98.8 98 22 140/68 (92) 97 2.0 04/28/18 12:25 Room Air I&O- Last 24 Hours up to 6 AM 04/30/18 06:00 Intake Total 1560 ml Output Total 1050 ml Balance 510 ml MARY MOFFETT DO Apr 30, 2018 08:39
[2018-04-30] MEDS ORDERED: LIDOCAINE 2% INJ 100 MG/5 ML SDV (FOR ANES.) As Ordered ONE (11:41)
[2018-04-30] MEDS ORDERED: PROPOFOL 200 MG/20 ML VIAL As Ordered ONE (11:41)
--- NOTE | 2018-04-30 12:42 | ROOR ---
Patient Name: Sangita Benavides Procedure Date: 04/30/2018 12:11 PM Date of : 1945 Age: 72 Room: [facility] Gender: Female Note Status: Finalized Procedure: Upper GI endoscopy Indications: Acute post hemorrhagic anemia, Iron deficiency anemia secondary to chronic blood loss, Iron deficiency anemia Providers: Matthew Grimaldo MD Referring MD: 2. Inpatient 2. Inpatient Requesting Provider: Medicines: Monitored Anesthesia Care Complications: No immediate complications. Procedure: Pre-Anesthesia Assessment: - Prior to the procedure, a History and Physical was performed, and patient medications and allergies were reviewed. The patient is competent. The risks and benefits of the procedure and the sedation options and risks were discussed with the patient. All questions were answered and informed consent was obtained. Patient identification and proposed procedure were verified by the physician, the nurse and the anesthesiologist in the endoscopy suite. Mental Status Examination: alert and oriented. Airway Examination: normal oropharyngeal airway and neck mobility. Respiratory Examination: clear to auscultation. CV Examination: normal. Prophylactic Antibiotics: The patient does not require prophylactic antibiotics. Prior Anticoagulants: The patient has taken Plavix (clopidogrel), last dose was 2 days prior to procedure. ASA Grade Assessment: III - A patient with severe systemic disease. After reviewing the risks and benefits, the patient was deemed in satisfactory condition to undergo the procedure. The anesthesia plan was to use monitored anesthesia care (MAC). Immediately prior to administration of medications, the patient was re-assessed for adequacy to receive sedatives. The heart rate, respiratory rate, oxygen saturations, blood pressure, adequacy of pulmonary ventilation, and response to care were monitored throughout the procedure. The physical status of the patient was re-assessed after the procedure. The Endoscope was introduced through the mouth, and advanced to the second part of duodenum. The upper GI endoscopy was somewhat difficult due to the patient's position intolerance. The patient tolerated the procedure fairly well. Findings: No gross lesions were noted in the entire esophagus. Bilious fluid was found in the gastric body. The gastric body and gastric antrum were normal. A small hiatal hernia was present. There is no endoscopic evidence of bleeding, inflammation or ulceration in the duodenal bulb, in the first portion of the duodenum and in the second portion of the duodenum. Two diminutive angiodysplastic lesions without bleeding were found in the first portion of the duodenum and in the second portion of the duodenum. To prevent bleeding, two hemostatic clips were successfully placed (MR conditional). There was no bleeding at the end of the procedure. Impression: - No gross lesions in esophagus. - Bilious gastric fluid. - Normal gastric body and antrum. - Small hiatal hernia. 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 Clips (MR conditional) were placed. - No specimens collected. Recommendation: - ? possibility of Heyde Syndrome (aortic stenosis plus angiodysplasia). Usually mulitple angiodysplasia throughout small intestine. No active bleeding at this time. May stop protonix IV (not acid related). ? if possible to just stop plavix - Admit the patient to [facility] for ongoing care. Matthew Grimaldo MD Matthew Grimaldo MD 04/30/2018 12:41:57 PM This report has been signed electronically. Number of Addenda: 0 Note Initiated On: 04/30/2018 12:11 PM Estimated Blood Loss: Estimated blood loss was minimal.
--- NOTE | 2018-04-30 12:44 | REP ---
PA and lateral chest: Comparisons are the portable chest of 04/28/2018 and PA and lateral chest of 09/21 2006. The lung ya are clear. The cardiac size is normal. There is a transcatheter aortic valve replacement. The finn, mediastinum, skeletal structures are unchanged. There are mediastinal nodes. On a CT of 12/07/2015 many of these nodes are calcified. Impression: There are no acute cardiopulmonary findings. Electronically Signed by Roosevelt Winn MD 04/30/2018 12:36 P
--- NOTE | 2018-04-30 12:44 | POST-OPPD ---
Postoperative Procedure Note Date Of Procedure: Apr 30, 2018 PREOPERATIVE DIAGNOSIS: severe anemia, chronic vs acute bleeding POSTOPERATIVE DIAGNOSIS: duodenal avms (nonbleeding) FINDINGS: 2 nonbleeding avms identified in duodenum which were clipped. no ulcer, no gastritis, duodenitis PROCEDURE: Upper GI endoscopy, placement of hemoclips x 2 SURGEON: Matthew Grimaldo MD ANESTHESIA: Monitored Anesthesia care SPECIMENS: none ESTIMATED BLOOD LOSS: minimal COMPLICATIONS:none POSTOPERATIVE CONDITION: stable MATTHEW GRIMALDO MD Apr 30, 2018 12:44
--- NOTE | 2018-04-30 12:47 | IPNPDOC ---
Text Note Date of Service The patient was seen on 04/30/18. NOTE Upper GI endoscopy done. 2 nonbleeding avms found and clipped. No evidence for active bleeding, stigmata of recent bleed, ulcers, inflammation at the esophagus, stomach and duodenum. 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 Multiple avms maybe present in the entire small bowel. Not sure if with her high risk ok to just discontinue the plavix. Not an ulcer disease so can stop IV protonix. VS,Fishbone, I+O VS, Fishbone, I+O Laboratory Tests 04/29/18 17:54 04/30/18 00:15 04/30/18 05:39 Red Blood Count 3.56 L, Mean Corpuscular Volume 79.2 L, Mean Corpuscular Hemoglobin 24.4 L, Mean Corpuscular Hemoglobin Concent 30.9 L, Red Cell Distribution Width 21.3 H, Calcium Level 8.5 L Vital Signs Date Time Temp Pulse Resp B/P (MAP) Pulse Ox O2 Delivery O2 Flow Rate FiO2 04/30/18 11:43 97.5 95 16 160/72 (101) 94 Room Air 04/30/18 08:00 2.0 I&O- Last 24 Hours up to 6 AM 04/30/18 06:00 Intake Total 1560 ml Output Total 1050 ml Balance 510 ml NATE RYAN MD Apr 30, 2018 12:46
[2018-04-30 13:35] VITALS: BP 144/67
--- NOTE | 2018-04-30 15:10 | IPNPDOC ---
Text Note Date of Service The patient was seen on 04/30/18. NOTE Subjective: Patient was seen and examined at the bedside. Patient denies any chest pain, shortness breath or palpitations. Has not eaten since midnight. Denies any abdominal pain, constipation, diarrhea or discomfort with urination. Hasn't experienced any N/V. Objective: Vitals (See below) General: Lying in bed, no acute distress, comfortable, AAOx3 HEENT: NC, AT CVS: RRR, +S1S2 Lungs: Fair air entry b/l, no evidence of wheezing, rhonchi, rales Abdomen: Soft, ND, nontender Extremities: No evidence of lower extremity edema, - Calf tenderness Assessment and plan: Symptomatic anemia - possibly 2/2 upper GI etiology - Patient had symptoms of anemia; however likely occurred chronically - Does not report any acute bleeding or change in stool - s/p 4 units PRBC - Hg has improved appropriately and remains stable - Iron panel consistent with deficiency - c/w Ferrous sulfate - s/p EGD 04/[address] 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 - Will DC Protonix - Will continue to hold Plavix; will resume ASA 81 - Will require outpatient follow up with Gastroenterology for possible capsule endoscopy HTN - BP moderately elevated - c/w Lisinopril - Hold Spironolactone / Furosemide Diastolic CHF - No evidence of fluid overload - ECHO 05/30: G1DD, AV sclerosis, Moderate , Mild Aortic regurgitation, Mild- moderate TR with moderate pulmonary HTN - Hold Spironolactone / Furosemide CAD - Will continue to hold Plavix; will resume ASA 81 - c/w Atorvastatin DM2 - Currently does not take medications as an outpatient - c/w ISS DVT prophylaxis - c/w SCDs Disposition: - Anticipate DC tomorrow VS,Fishbone, I+O VS, Fishbone, I+O Laboratory Tests 04/29/18 17:54 04/30/18 00:15 04/30/18 05:39 Red Blood Count 3.56 L, Mean Corpuscular Volume 79.2 L, Mean Corpuscular Hemoglobin 24.4 L, Mean Corpuscular Hemoglobin Concent 30.9 L, Red Cell Distribution Width 21.3 H, Calcium Level 8.5 L Vital Signs Date Time Temp Pulse Resp B/P (MAP) Pulse Ox O2 Delivery O2 Flow Rate FiO2 04/30/18 13:35 98.3 102 20 144/67 (92) 93 04/30/18 12:36 Room Air 04/30/18 08:00 2.0 I&O- Last 24 Hours up to 6 AM 04/30/18 06:00 Intake Total 1560 ml Output Total 1050 ml Balance 510 ml ARIE ALEXANDER MD Apr 30, 2018 15:09
[2018-04-30 16:00] VITALS: BP 150/72
[2018-04-30] MEDS: ASPIRIN 81 MG ENTERIC TAB PO SCH (17:07)
[2018-04-30 20:00] VITALS: BP 153/63
[2018-05-01] VITALS: BP 145/67
[2018-05-01 04:00] VITALS: BP 141/72
[2018-05-01 05:34] LABS: HEMATOCRIT 30.8 % (36.0-47.0); HEMOGLOBIN 9.3 g/dl (12.0-15.5); MEAN CORPUSCULAR HEMOGLOBIN 24.5 pg (27.0-33.0); MEAN CORPUSCULAR HGB CONC 30.2 g/dl (32.0-36.5); MEAN CORPUSCULAR VOLUME 81.3 fl (80.0-96.0); PLATELET COUNT, AUTOMATED 225 10^3/uL (150-450); RED BLOOD COUNT 3.79 10^6/uL (4.00-5.40); WHITE BLOOD COUNT 10.1 10^3/uL (4.0-10.0)
[2018-05-01 05:54] LABS: BLOOD UREA NITROGEN 18 MG/DL (7-18); CALCIUM LEVEL 8.5 MG/DL (8.8-10.2); CARBON DIOXIDE LEVEL 29 MEQ/L (21-32); CHLORIDE LEVEL 105 MEQ/L (98-107); CREATININE FOR GFR 0.94 MG/DL (0.55-1.30); GLOMERULAR FILTRATION RATE > 60.0 (>39); GLUCOSE, FASTING 98 MG/DL (70-100); POTASSIUM SERUM 4.3 MEQ/L (3.5-5.1); SODIUM LEVEL 139 MEQ/L (136-145)
[2018-05-01] MEDS: HumaLOG INSULIN (NovoLOG) PER UNIT SC SCH (07:30)
[2018-05-01 08:00] VITALS: BP 141/69
[2018-05-01 08:19] VITALS: BP 141/69
[2018-05-01] MEDS: LISINOPRIL 10 MG TAB PO SCH (08:19)
[2018-05-01] MEDS: FERROUS SULFATE 325MG TAB PO SCH (08:19)
[2018-05-01] MEDS: OMEGA-3 1000MG CAPSULE PO SCH (08:19)
[2018-05-01] MEDS: ATORVASTATIN 20 MG TAB PO SCH (08:19)
[2018-05-01] MEDS: ASPIRIN 81 MG ENTERIC TAB PO SCH (08:19)
[2018-05-01] MEDS ORDERED: ASPI81TAEC PO (09:15)
--- NOTE | 2018-05-01 12:54 | DS.PDOC ---
Discharge Summary General Date of Admission Apr 28, 2018 at 15:44 Date of Discharge 05/01/2018 Discharge Summary PROCEDURES PERFORMED DURING STAY: EGD 04/[address] Grimaldo ADMITTING DIAGNOSES / DISCHARGE DIAGNOSES: Symptomatic anemia - possibly 2/2 upper GI etiology HTN Diastolic CHF CAD DM2 DVT prophylaxis COMPLICATIONS/CHIEF COMPLAINT: Shortness of breath HISTORY OF PRESENT ILLNESS: Patient 72-year-old female with a PMHx of CAD s/p stent (12/2016), HTN, DM2, DLP, Hx of GI bleed requiring transfusions, Hx of SUNITA who presented to the ER with shortness of breath and fatigue. She visited her PCP who found she was anemic and advised her to go to the ER. She was found to have a Hg of 4.7 and was admitted to the hospitalist service for further evaluation and treatment. Surgery was consulted. HOSPITAL COURSE: Symptomatic anemia - possibly 2/2 upper GI etiology - Patient had symptoms of anemia; however likely occurred chronically - Does not report any acute bleeding or change in stool - s/p 4 units PRBC - Hg has improved appropriately and remains stable - Iron panel consistent with deficiency - c/w Ferrous sulfate - s/p EGD 04/[address] 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 - Will DC Protonix - Will continue to hold Plavix; will resume ASA 81 - Will require outpatient follow up with Gastroenterology for possible capsule endoscopy HTN - BP moderately elevated - c/w Lisinopril - Hold Spironolactone / Furosemide Diastolic CHF - No evidence of fluid overload - ECHO 05/30: G1DD, AV sclerosis, Moderate , Mild Aortic regurgitation, Mild- moderate TR with moderate pulmonary HTN - Hold Spironolactone / Furosemide CAD - Will continue to hold Plavix; will resume ASA 81 - c/w Atorvastatin DM2 - Currently does not take medications as an outpatient - c/w ISS DVT prophylaxis - c/w SCDs DISCHARGE MEDICATIONS: Please see below. ALLERGIES: Please see below. PHYSICAL EXAMINATION ON DISCHARGE: Vitals (See below) General: Lying in bed, no acute distress, comfortable, AAOx3 HEENT: NC, AT CVS: RRR, +S1S2 Lungs: Fair air entry b/l, no evidence of wheezing, rhonchi, rales Abdomen: Soft, ND, nontender Extremities: No evidence of lower extremity edema, - Calf tenderness LABORATORY DATA: Please see below. ACTIVITY: [As tolerated]. DISCHARGE PLAN: Follow up with Yolanda Rodriguez and Dr. Grimaldo within 7 days Referral to see Gastroenterology for possible capsule endoscopy Remain compliant with treatment plan and medications Return to the ER if you experience any problems DISPOSITION: Home, Self-Care. DISCHARGE CONDITION: [Stable]. TIME SPENT ON DISCHARGE: Greater than [35] minutes. Vital Signs/I&Os Vital Signs Date Time Temp Pulse Resp B/P (MAP) Pulse Ox O2 Delivery O2 Flow Rate FiO2 05/01/18 08:19 141/69 05/01/18 08:00 98.9 91 18 92 04/30/18 12:36 Room Air 04/30/18 08:00 2.0 I&O- Last 24 Hours up to 6 AM 05/01/18 06:00 Intake Total 860 ml Output Total 1050 ml Balance -190 ml Laboratory Data Labs 24H Laboratory Tests 2 04/30/18 16:47: Bedside Glucose (Misc Panel) 122H 04/30/18 19:54: Bedside Glucose (Misc Panel) 111H 05/01/18 05:19: Nucleated Red Blood Cells % (auto) 1.4H, Anion Gap 5L, Glomerular Filtration Rate > 60.0, Blood Urea Nitrogen 18, Creatinine 0.94, Sodium Level 139, Potassium Level 4.3, Chloride Level 105, Carbon Dioxide Level 29, Calcium Level 8.5L CBC/BMP Laboratory Tests 05/01/18 05:19 Red Blood Count 3.79 L, Mean Corpuscular Volume 81.3, Mean Corpuscular Hemoglobin 24.5 L, Mean Corpuscular Hemoglobin Concent 30.2 L, Red Cell Distribution Width 22.8 H, Calcium Level 8.5 L FSBS Laboratory Tests Test 04/30/18 16:47 04/30/18 19:54 Range/Units Bedside Glucose (Misc Panel) 122 111 83-110 MG/DL Discharge Medications Scheduled Aspirin (Aspirin EC) 81 Mg Tabec, 81 MG PO DAILY Atorvastatin Calcium (Lipitor) 20 Mg Tab, 20 MG PO DAILY, (Reported) Cholecalciferol (Vitamin D) 1,000 Unit Tab, 1,000 UNIT PO DAILY, (Reported) Ferrous Sulfate (Ferrous Sulfate) 325 Mg Tab, 325 MG PO BID, (Reported) Fish Oil (Fish Oil 1000 mg) 1 Cap Cap, 1 CAP PO DAILY, (Reported) Furosemide (Lasix) 20 Mg Tab, 10 MG PO DAILY, (Reported) Lisinopril (Lisinopril) 10 Mg Tab, 10 MG PO DAILY, (Reported) Spironolactone (Spironolactone) 50 Mg Tab, 50 MG PO BID, (Reported) Scheduled PRN Acetaminophen (Tylenol) 325 Mg Tab, 650 MG PO Q4H PRN for PAIN, (Reported) Allergies Coded Allergies: Latex (Unverified Allergy, Mild, Rash, 06/24/14) Pt reports " I don't think I am allergic but I tend to breakout around latex" Valacyclovir (Verified Allergy, Unknown, 02/12/18) Morphine (Verified Adverse Reaction, Intermediate, DROP IN BP, 04/09/16) ARIE ALEXANDER MD May 01, 2018 12:54
--- NOTE | 2018-05-01 15:56 | CR ---
DATE OF CONSULTATION: 04/30/2018 REASON FOR CONSULTATION:: Gastrointestinal (GI) bleed. HISTORY OF PRESENT ILLNESS: The patient 72-year-old female who presented to the emergency department (ED) from her primary after complaining of shortness of breath and weakness for the past 2 weeks. She denies any obvious bleeding during that time. No blood in her stool. No coughing up blood. No throwing up blood. No bloody noses. At her primary her white blood count was low, so she was sent to the emergency room (ER) for evaluation. In the ER her hemoglobin was down to 4.7 at its lowest point, and she was transfused immediately and felt improvement soon after the transfusion. She denies any fevers or chills. No unexplained weight loss. No change in appetite. No nausea or vomiting and no bleeding or bruising anywhere. She has had recent symptoms, like this last December. She was scoped down at [facility]. She believes they removed a polyp from her colon and had to cauterize or stop something from bleeding in her stomach, but she is unsure of exactly what they did, and we are waiting on those records to be sent up. PAST MEDICAL HISTORY: 1. Anemia. 2. Dyslipidemia. 3. Vitamin D deficiency. 4. Hypertension. 5. Type 2 diabetes. 6. Heart murmur. 7. Coronary artery disease. PAST SURGICAL HISTORY: 1. Cholecystectomy. 2. Left cataract surgery. 3. Esophagogastroduodenoscopy (EGD) and colonoscopy. SOCIAL HISTORY: Smokes half pack a day. Denies drug or alcohol abuse. FAMILY HISTORY: Noncontributory. ALLERGIES: LATEX, MORPHINE, VALACYCLOVIR. HOME MEDICATIONS: Please see medication reconciliation. Those include aspirin and Plavix. REVIEW OF SYSTEMS: Pertinent positives and negatives as stated in the history of present illness (HPI). PHYSICAL EXAMINATION: GENERAL: Alert and oriented times three. No acute stress. VITAL SIGNS: Temperature 98.8, pulse 98, respirations 22, blood pressure 140/68, pulse oximetry 97% on 2 liters nasal cannula. HEENT: Pupils equally round and reactive to light and accommodation. HEART: S1, S2, regular rate and rhythm. LUNGS: Clear to auscultation bilaterally. ABDOMEN: Soft, nontender, nondistended. EXTREMITIES: No clubbing, cyanosis, or edema. LABORATORY DATA: Hemoglobin 9.1 at midnight, down to 8.7 this morning, white count 10.2, platelets 231. ASSESSMENT AND PLAN: The patient 72-year-old female with gastrointestinal (GI) bleed from unknown source, suspecting upper source. Recommend to proceed with an EGD. If the EGD is negative for any signs of any bleeding, I recommend we restart her on anticoagulation and see how she does. If she shows signs of bleeding again after being restarted on her anticoagulation, then we can consider repeating the lower endoscopy as well. Thank you for consult.
== END 2018-05-01 11:15 | disposition home or self-care (01) | DRG 378 ==
LOC: M ED 11:51 → M ED INP 15:44 → M PCU 17:09
PROVIDERS: ADMIT Internal Medicine; ATTEND Internal Medicine
PROC: 30233N1 Transfusion of Nonautologous Red Blood Cells into Peripheral Vein, Percutaneous Approach (ICD-10-PCS; principal; 2018-04-28)
PROC: 0W3P8ZZ Control Bleeding in Gastrointestinal Tract, Via Natural or Artificial Opening Endoscopic (ICD-10-PCS; 2018-04-30)
DX: K92.2 Gastrointestinal hemorrhage, unspecified (principal); I50.32 Chronic diastolic (congestive) heart failure; D62 Acute posthemorrhagic anemia; E11.9 Type 2 diabetes mellitus without complications; I25.10 Atherosclerotic heart disease of native coronary artery without angina pectoris; I11.0 Hypertensive heart disease with heart failure; Z95.2 Presence of prosthetic heart valve; I27.20 Pulmonary hypertension, unspecified; I08.2 Rheumatic disorders of both aortic and tricuspid valves; Z79.899 Other long term (current) drug therapy; Z91.040 Latex allergy status; F17.200 Nicotine dependence, unspecified, uncomplicated; Z88.5 Allergy status to narcotic agent; Z88.8 Allergy status to other drugs, medicaments and biological substances; K44.9 Diaphragmatic hernia without obstruction or gangrene; K31.819 Angiodysplasia of stomach and duodenum without bleeding; E55.9 Vitamin D deficiency, unspecified

== ENCOUNTER → 2018-05-07 | Outpatient (REF) | payer MEDICARE ==
[~2018-05-07] MED LIST changes: +ASPI81TAEC PO; +LASI20TA3 PO; +SPIR50TA4 PO
[2018-05-10 00:07] LABS: F8 ACTIVITY FOR F8 PANEL 322 % (57-163); F8 ACTIVITY vWB FOR F8 PANEL 270 % (50-200); F8 ANTIGEN FOR F8 PANEL 294 % (50-200); HAPTOGLOBIN 267 mg/dL (34-200)
== END ==
LOC: M LAB REF 11:58
PROVIDERS: ATTEND Nurse Practitioner Adult Health
DX: D64.9 Anemia, unspecified (principal); I35.0 Nonrheumatic aortic (valve) stenosis

== ENCOUNTER → 2018-05-28 | Outpatient (REF) | payer MEDICARE | LOC: M LAB REF 17:11 | PROVIDERS: ATTEND Nurse Practitioner Adult Health | DX: D50.9 Iron deficiency anemia, unspecified (principal) ==

== ENCOUNTER → 2018-07-09 | Outpatient (REF) | payer MEDICARE ==
[~2018-07-09] MED LIST changes: -ASPI1TAB PO; +ASPI81TA26 PO; +VITA500T17 PO; -VITA500T53 PO
== END ==
LOC: M LAB REF 12:43
PROVIDERS: ATTEND Nurse Practitioner Adult Health
DX: D50.9 Iron deficiency anemia, unspecified (principal)

== ENCOUNTER 2018-09-15 13:52 | Inpatient (IN) | payer MEDICARE ==
[2018-09-15] VITALS (11 sets, daily range): BP systolic 127–149; BP diastolic 60–70
[~2018-09-15] VITALS: Ht 165.1 cm; Wt 84.5 kg
[2018-09-15 14:48] LABS: BASO % 0.5 % (0.0-1.0); EOS # 0.1 10^3/uL (0.0-0.50); EOS % 0.6 % (0.0-3.0); HEMATOCRIT 19.4 % (36.0-47.0); LYMPH # 1.2 10^3/uL (1.5-4.5); MEAN CORPUSCULAR HEMOGLOBIN 19.5 pg (27.0-33.0); MEAN CORPUSCULAR HGB CONC 26.3 g/dl (32.0-36.5); MONO # 0.5 10^3/uL (0.0-0.8); MONO % 6.3 % (0.0-5.0); NEUTROPHILS # 5.9 10^3/uL (1.8-7.7); PLATELET COUNT, AUTOMATED 246 10^3/uL (150-450); RED BLOOD COUNT 2.62 10^6/uL (4.00-5.40); WHITE BLOOD COUNT 7.8 10^3/uL (4.0-10.0)
[2018-09-15 14:53] LABS: HEMOGLOBIN 5.1 g/dl (12.0-15.5)
[2018-09-15 15:12] LABS: PERCENT SATURATION 8.5 % (13.2-45.0)
[2018-09-15 15:22] LABS: ALBUMIN 2.9 GM/DL (3.2-5.2); BILIRUBIN,TOTAL 0.3 MG/DL (0.2-1.0); CALCIUM LEVEL 8.4 MG/DL (8.8-10.2); CREATININE FOR GFR 1.17 MG/DL (0.55-1.30); POTASSIUM SERUM 4.3 MEQ/L (3.5-5.1); TOTAL PROTEIN 6.3 GM/DL (6.4-8.2)
[2018-09-15] MEDS: D5W/0.45% SODIUM CHLORIDE 1,000 ML IV SCH (15:46)
[2018-09-15 15:48] LABS: INR 1.08; PARTIAL THROMBOPLASTIN TIME 24.9 SECONDS (25.0-38.4); PROTHROMBIN TIME 13.7 SECONDS (11.8-14.0)
[2018-09-15] MEDS ORDERED: ASPI81TA85 PO (15:57)
[2018-09-15] MEDS ORDERED: FERR325T3 PO (15:57)
[2018-09-15] MEDS ORDERED: SPIR-10 PO (15:57)
[2018-09-15] MEDS ORDERED: APAP325T4 PO (15:57)
[2018-09-15] MEDS ORDERED: FISH1000 PO (15:58)
[2018-09-15] MEDS ORDERED: GLUCAGON FOR INJ 1 MG VIAL (J1610) SC PRN (16:00)
[2018-09-15] MEDS ORDERED: DEXTROSE 50% 50 ML SYRINGE IV PRN (16:00)
[2018-09-15] MEDS ORDERED: GLUCOSE 4 GM CHEW TABLET PO PRN (16:00)
--- NOTE | 2018-09-15 19:01 | HPEPDOC ---
[facility] Medical History & Physical Date of Admission Sep 15, 2018 Date of Service: Sep 15, 2018 History and Physical CHIEF COMPLAINT: SOB X 2 WEEKS HPI: 73 Y/O Female with past medical history of UGIBleed s/p rbc transfusion EGD 05/06 Dr. Dillan EASTMAN s/p clips, colonoscopy: IBD, hemorrhoids, CAD on ASA, DM, HTN presents to ED with 2 weeks MALONE, without chest pain, pressure, tightness, but admits to lightheadedness without dizziness. She has been grabbing at the furniture to walk, but has had no falls. She denies any hematemesis, nausea, vomiting, abdominal pain, bright red blood per rectum, melena, or black tarry stools. She has resumed her aspirin since previous admission in april of this year, but denies any other NSAID use. In the ER she was found to have a hgb of 5, with pallor but not orthostatic. Hospitalist was asked to admit as an inpatient for two midnights for symptomatic anemia due to gi bleed. PAST MEDICAL HISTORY: Iron deficiency anemia. History of GI bleed/ AVM clips 05/06 Hemorrhoids IBD History of RBC transfusion. Dyslipidemia. Vitamin D deficiency. Hypertension. Type 2 diabetes, diet controlled. History of murmur. History of coronary artery disease. PAST SURGICAL HISTORY: Cholecystectomy. Left cataract. EGD.AVM clips 04/2018 Colonoscopy: Inflammatory bowel disease, external hemorrhoids. ALLERGIES: Please see below. HOME MEDICATIONS: Please see below. SOCIAL HISTORY: Lives at home with . with four children. Retired, smokes 1/2 PPD for 58 yrs. Denies alcohol use. Denies illicit drug use. FAMILY HISTORY: mother , father , son - Coronary artery disease., son - cva ,htn ROS: 10 point systems review negative aside from (+) on HPI PHYSICAL EXAMINATION: GEN: AAO x3 no conversation dyspnea or use of accessory respiratory muscles pale HEENT : no lymphadenopathy, PERRLA , no oropharyngeal erythema or exudates CVS: Normal S1/s2, no murmurs, rubs or gallops, RESP: Lungs are clear to auscultation bilaterally, fine crackles at bases, no wheezes or rhonchi Abd: soft, nontender, nondistended, + BS MSK: full ROM, 5/5 strength in all extremities Integumentary: no rash or bruises Neuro: AOAx3, no focal deficit, poor memory psych: normal mood, good judgement and cooperative EKG, LABORATORY DATA,MICROBIOLOGY, IMAGING STUDIES: PLS SEE BELOW ASSESSMENT AND PLAN: 73 Y/O Female with past medical history of UGIBleed s/p rbc transfusion EGD 05/06 Dr. Dillan EASTMAN s/p clips, colonoscopy: IBD, hemorrhoids, CAD on ASA, DM, HTN presents to ED with 2 weeks MALONE, without chest pain, pressure, tightness, but admits to lightheadedness without dizziness. She has been grabbing at the furniture to walk, but has had no falls. She denies any hematemesis, nausea, vomiting, abdominal pain, bright red blood per rectum, melena, or black tarry stools. She has resumed her aspirin since previous admission in april of this year, but denies any other NSAID use. In the ER she was found to have a hgb of 5, with pallor but not orthostatic. Hospitalist was asked to admit as an inpatient for two midnights for symptomatic anemia due to gi bleed. Acute Blood Loss Anemia -due to recurrent UGIBleed on chronic ASA -admitted to telemetry -4u rbc transfusions with lasix to prevent fluid overload -npo status -hypoglycemic protocol -d51/2 ns after rbc transfusion to prevent hypoglycemia -ppi iv and po carafate -no GI available -general surgery Dr. Moffett consulted -hold asa Acute UGIBleed - with Acute Blood Loss Anemia -due to recurrent UGIBleed on chronic ASA -admitted to telemetry -4u rbc transfusions with lasix to prevent fluid overload -npo status -hypoglycemic protocol -d51/2 ns after rbc transfusion to prevent hypoglycemia -ppi iv and po carafate -no GI available -general surgery Dr. Moffett consulted -hold asa Symptomatic Anemia - c/o MALONE -r/o ACS, cycle cardiac markers -due to acute UGIBleed/ Blood Loss Anemia -due to recurrent UGIBleed on chronic ASA -admitted to telemetry -4u rbc transfusions with lasix to prevent fluid overload -npo status -hypoglycemic protocol -d51/2 ns after rbc transfusion to prevent hypoglycemia -ppi iv and po carafate -no GI available -general surgery Dr. Moffett consulted -hold ASA Dyslipidemia. -hold home meds -npo for gi bleed Vitamin D deficiency. hold home meds -npo for gi bleed Hypertension. hold home meds -npo for gi bleed if needed, iv hydralazine, iv metoprolol q6hrs or nitropatch Type 2 diabetes, diet controlled. -npo -fingersticks q6hrs while npo -hypoglycemic protocol -ivfluids History of coronary artery disease -hold ASA -change to iv bp meds if uncontrolled HTN History of hemorrhoids/IBD on colonoscopy -defer to surgery. DVTprophylaxis: compression stockings due to acute GIBleed Diet: npo. ivfluids.. Vital Signs Vital Signs Date Time Temp Pulse Resp B/P (MAP) Pulse Ox O2 Delivery O2 Flow Rate FiO2 09/15/18 14:04 09/15/18 13:52 98.2 90 18 92 Room Air Laboratory Data Labs 24H Laboratory Tests 2 09/15/18 14:31: Immature Granulocyte % (Auto) 0.6, White Blood Count 7.8, Red Blood Count 2.62L, Hemoglobin 5.1*L, Hematocrit 19.4L, Mean Corpuscular Volume 74.0L, Mean Corpuscular Hemoglobin 19.5L, Mean Corpuscular Hemoglobin Concent 26.3L, Red Cell Distribution Width 20.9H, Platelet Count 246, Neutrophils (%) (Auto) 76.0H, Lymphocytes (%) (Auto) 16.0L, Monocytes (%) (Auto) 6.3H, Eosinophils (%) (Auto) 0.6, Basophils (%) (Auto) 0.5, Neutrophils # (Auto) 5.9, Lymphocytes # (Auto) 1.2L, Monocytes # (Auto) 0.5, Eosinophils # (Auto) 0.1, Basophils # (Auto) 0.0, Nucleated Red Blood Cells % (auto) 1.0H, Anion Gap 5L, Glomerular Filtration Rate 48.0, Blood Urea Nitrogen 25H, Creatinine 1.17, Sodium Level 141, Potassium Level 4.3, Chloride Level 105, Carbon Dioxide Level 31, Calcium Level 8.4L, Aspartate Amino Transf (AST/SGOT) 15, Alanine Aminotransferase (ALT/SGPT) 18, Alkaline Phosphatase 119H, Total Bilirubin 0.3, Total Protein 6.3L, Albumin 2.9L, Iron Level 35L, Total Iron Binding Capacity 413, Transferrin % Saturation 8.5L, Ferritin 4L, Albumin/Globulin Ratio 0.85L CBC/BMP Laboratory Tests 09/15/18 14:31 Red Blood Count 2.62 L, Mean Corpuscular Volume 74.0 L, Mean Corpuscular Hemoglobin 19.5 L, Mean Corpuscular Hemoglobin Concent 26.3 L, Red Cell Distribution Width 20.9 H, Neutrophils (%) (Auto) 76.0 H, Lymphocytes (%) (Auto) 16.0 L, Monocytes (%) (Auto) 6.3 H, Eosinophils (%) (Auto) 0.6, Basophils (%) (Auto) 0.5, Neutrophils # (Auto) 5.9, Lymphocytes # (Auto) 1.2 L, Monocytes # (Auto) 0.5, Eosinophils # (Auto) 0.1, Basophils # (Auto) 0.0, Calcium Level 8.4 L, Aspartate Amino Transf (AST/SGOT) 15, Alanine Aminotransferase (ALT/SGPT) 18, Alkaline Phosphatase 119 H, Total Bilirubin 0.3, Total Protein 6.3 L, Albumin 2.9 L Home Medications Scheduled Aspirin (Aspir 81) 81 Mg Tablet.dr, 81 MG PO DAILY Atorvastatin Calcium (Lipitor) 20 Mg Tab, 20 MG PO DAILY Cholecalciferol (Vitamin D3) (Vitamin D3) 1,000 Unit Tab, 1,000 UNIT PO DAILY Ferrous Sulfate (Ferrous Sulfate) 325 Mg Tab, 325 MG PO DAILY Furosemide (Lasix) 20 Mg Tab, 10 MG PO DAILY Lisinopril (Lisinopril) 10 Mg Tab, 10 MG PO DAILY [place]-3 Fatty Acids/Fish Oil (Fish Oil 1,000 mg Capsule) 1 Each Capsule, 1,000 MG PO DAILY Spironolactone (Spironolactone) 25 Mg Tablet, 12.5 MG PO DAILY Scheduled PRN Acetaminophen (Acetaminophen) 325 Mg Tablet, 650 MG PO Q4H PRN for PAIN Allergies Coded Allergies: morphine (Verified Allergy, Unknown, heart low rate, 09/15/18) A-FIB/CHADSVASC A-FIB History Current/History of A-Fib/PAF?: No Current PO Anticoag Therapy: No SOFIA GRULLON MD Sep 15, 2018 15:46
[2018-09-15] MEDS: SUCRALFATE SUSP 1GM/10ML UD PO SCH (20:09)
[2018-09-15] MEDS: PANTOPRAZOLE 40MG INJ (PROTONIX) (C9113) IV SCH (20:44)
[2018-09-16] VITALS (9 sets, daily range): BP systolic 125–153; BP diastolic 58–75
[2018-09-16] MEDS: SUCRALFATE SUSP 1GM/10ML UD PO SCH ×3 (01:38→12:34)
[2018-09-16] MEDS: D5W/0.45% SODIUM CHLORIDE 1,000 ML IV SCH (03:49)
[2018-09-16 05:59] LABS: HEMATOCRIT 34.3 % (36.0-47.0); MEAN CORPUSCULAR HEMOGLOBIN 24.1 pg (27.0-33.0); MEAN CORPUSCULAR HGB CONC 29.7 g/dl (32.0-36.5); MEAN CORPUSCULAR VOLUME 80.9 fl (80.0-96.0); PLATELET COUNT, AUTOMATED 201 10^3/uL (150-450); RED BLOOD COUNT 4.24 10^6/uL (4.00-5.40); WHITE BLOOD COUNT 8.2 10^3/uL (4.0-10.0)
[2018-09-16 06:09] LABS: HEMOGLOBIN 10.2 g/dl (12.0-15.5)
[2018-09-16 06:38] LABS: CALCIUM LEVEL 8.6 MG/DL (8.8-10.2); CREATININE FOR GFR 1.07 MG/DL (0.55-1.30); GLOMERULAR FILTRATION RATE 53.2 (>39); POTASSIUM SERUM 4.6 MEQ/L (3.5-5.1)
[2018-09-16] MEDS: PANTOPRAZOLE 40MG INJ (PROTONIX) (C9113) IV SCH (08:51)
[2018-09-16] MEDS ORDERED: FUROSEMIDE 20 MG/2 ML VIAL (J1940) IV ONE (09:30)
[2018-09-16] MEDS ORDERED: GLUCOSE 4 GM CHEW TABLET PO PRN (11:15)
[2018-09-16] MEDS ORDERED: GLUCAGON FOR INJ 1 MG VIAL (J1610) SC PRN (11:15)
[2018-09-16] MEDS ORDERED: DEXTROSE 50% 50 ML SYRINGE IV PRN (11:15)
[2018-09-16] MEDS ORDERED: HumaLOG INSULIN (NovoLOG) PER UNIT SC SCH ×2 (12:00→21:00)
[2018-09-16 12:01] LABS: HEMATOCRIT 36.7 % (36.0-47.0)
[2018-09-16] MEDS ORDERED: OMEP40CA2 PO (12:58)
--- NOTE | 2018-09-16 18:05 | CR ---
DATE OF CONSULTATION: 09/16/2018 REASON FOR CONSULTATION: Gastrointestinal (GI) bleed. HISTORY OF PRESENT ILLNESS: The patient is a 73-year-old female with a history of gastrointestinal (GI) bleed in the past secondary to likely arteriovenous malformations (AVMs) in her duodenum. Those were clipped by Dr. Grimaldo back in April of 2018. She came into the emergency room yesterday complaining of shortness of breath for the past two weeks and some weakness. She was found have a hemoglobin of 5. No orthostatic hypotension. Vital signs were all stable. She denies any blood in her stool. No nausea or vomiting. No abdominal pains. No hematemesis. No bloody noses or any other signs of bleeding. Denies any alcohol abuse. No problems with heartburn or acid reflux. No other complaints. Last colonoscopy was a couple of years ago and it was normal, and again this esophagogastroduodenoscopy (EGD) was done back in April of 2018. PAST MEDICAL HISTORY: Iron deficiency anemia, history of gastrointestinal (GI) bleed, hemorrhoids, inflammatory bowel disease (IBD), dyslipidemia, hypertension, diabetes, coronary artery disease. PAST SURGICAL HISTORY: Cholecystectomy, cataracts, esophagogastroduodenoscopy (EGD), colonoscopy. ALLERGIES: MORPHINE. MEDICATIONS: Please see medical record. REVIEW OF SYSTEMS: Pertinent positives and negative as stated in the history of present illness (HPI). PHYSICAL EXAMINATION: GENERAL: Alert and oriented times three, in no acute stress. VITAL SIGNS: Temperature 97.5, pulse 92, respirations 19, blood pressure 126/67, pulse oximetry 98% on room air. HEENT: Pupils equally round and react to light and accommodation. HEART: S1, S2, regular rate and rhythm. LUNGS: Clear to auscultation bilaterally. ABDOMEN: Soft, nontender, nondistended. EXTREMITIES: No clubbing, cyanosis or edema. LABORATORY DATA: White count 8.2, hemoglobin 5.1 on admission up to 10.2 this morning, platelets 201. ASSESSMENT AND PLAN: The patient is a 73-year-old female with fecal occult on admission and a hemoglobin of 5, likely secondary to upper versus lower gastrointestinal (GI) bleed. At this point, she has no obvious signs of bleeding from anywhere and she is completely stable. Her symptoms likely have been progressive slowly over time. There is not likely any acute source of bleeding. Recommendation at this time is to discharge home since she is stable. She can followup with me as an outpatient. We can plan for both upper and lower scope electively in the next couple of weeks. This was discussed in detail with her. She understands and agrees and is anxious to go home.
--- NOTE | 2018-09-16 18:46 | DS.PDOC ---
Discharge Summary General Date of Admission Sep 15, 2018 at 15:46 Date of Discharge 09/16/18 Discharge Summary PROCEDURES PERFORMED DURING STAY: [None]. ADMITTING DIAGNOSES: 1. Anemia 2. HLD 3. Vit D deficiency 4. HTN 5. DM 6. CAD 7. hx hemorrhoids/IBD DISCHARGE DIAGNOSES: 1. Anemia 2. HLD 3. Vit D deficiency 4. HTN 5. DM 6. CAD 7. hx hemorrhoids/IBD COMPLICATIONS/CHIEF COMPLAINT: Gi Bleed. HISTORY OF PRESENT ILLNESS: "73 Y/O Female with past medical history of UGIBleed s/p rbc transfusion EGD 05/06 Dr. Dillan EASTMAN s/p clips, colonoscopy: IBD, hemorrhoids, CAD on ASA, DM, HTN presents to ED with 2 weeks MALONE, without chest pain, pressure, tightness, but admits to lightheadedness without dizziness. She has been grabbing at the furniture to walk, but has had no falls. She denies any hematemesis, nausea, vomiting, abdominal pain, bright red blood per rectum, melena, or black tarry stools. She has resumed her aspirin since previous admission in april of this year, but denies any other NSAID use. In the ER she was found to have a hgb of 5, with pallor but not orthostatic. Hospitalist was asked to admit as an inpatient for two midnights for symptomatic anemia due to gi bleed." HOSPITAL COURSE: Patient was admitted for symptomatic anemia and given 4 units pRBC with improvement/resolution of symptoms. She denies any noticable bleeding and has been hemodynamically stable. She was seen by surgery and after discussion, stated that she wanted to go home for outpatient follow up given chronicity of the bleed/anemia. Does not think that it is acute and does not want to stay for additional monitoring post transfusion. Patient will be discharged home and to follow up with PMD and well as surgery outpatient for scope. To hold aspirin for the time being, can be resumed by PMD/Surgery if no recurrent anemia/bleeding occurs. DISCHARGE MEDICATIONS: Please see below. ALLERGIES: Please see below. PHYSICAL EXAMINATION ON DISCHARGE: VITAL SIGNS: Please see below. General: No acute distress, Alert Eyes: Normal sclera, EOMI, DANIELE HENT: Atraumatic, neck supple, moist mucous membranes Cardiovascular: Normal rate, normal rhythm. Pulmonary: Clear to auscultation b/l, no wheezing GI: Soft, nontender, nondistended Skin: Warm and dry Neuro: CN grossly intact. No focal deficits. Strengths equal b/l. Psych: oriented x 3 LABORATORY DATA: Please see below. ACTIVITY: [As tolerated]. DIET: Diabetic diet DISCHARGE PLAN: f/u with PMD. f/u with surgery for EGD and/or colonoscopy as outpatient. Hold ASA for now. Can be resumed by PMD/Surgery once bleeding/anemia is co ntrolled or resolved. DISPOSITION: 01 Home, Self-Care. DISCHARGE INSTRUCTIONS: f/u with PMD. f/u with surgery for EGD and/or colonoscopy as outpatient. Hold ASA for now. Can be resumed by PMD/Surgery once bleeding/anemia is controlled or resolved. ITEMS TO FOLLOWUP ON ON OUTPATIENT: None DISCHARGE CONDITION: [Stable]. TIME SPENT ON DISCHARGE: 32 minutes. Vital Signs/I&Os Vital Signs Date Time Temp Pulse Resp B/P (MAP) Pulse Ox O2 Delivery O2 Flow Rate FiO2 09/16/18 12:00 98.1 82 19 125/58 (80) 92 09/15/18 17:22 Room Air I&O- Last 24 Hours up to 6 AM 09/16/18 06:00 Intake Total 1200 ml Output Total 675 ml Balance 525 ml Laboratory Data Labs 24H Laboratory Tests 2 09/15/18 18:46: Bedside Glucose (Misc Panel) 104 09/16/18 00:45: Bedside Glucose (Misc Panel) 108 09/16/18 05:09: Bedside Glucose (Misc Panel) 113H 09/16/18 05:26: Nucleated Red Blood Cells % (auto) 1.3H, Anion Gap 7L, Glomerular Filtration Rate 53.2, Blood Urea Nitrogen 22H, Creatinine 1.07, Sodium Level 138, Potassium Level 4.6, Chloride Level 107, Carbon Dioxide Level 24, Calcium Level 8.6L 09/16/18 11:23: Bedside Glucose (Misc Panel) 100 CBC/BMP Laboratory Tests 09/16/18 05:26 Red Blood Count 4.24, Mean Corpuscular Volume 80.9, Mean Corpuscular Hemoglobin 24.1 L, Mean Corpuscular Hemoglobin Concent 29.7 L, Red Cell Distribution Width 21.6 H, Calcium Level 8.6 L 09/16/18 11:50 FSBS Laboratory Tests Test 09/15/18 18:46 09/16/18 00:45 09/16/18 05:09 09/16/18 11:23 Range/Units Bedside Glucose (Misc Panel) 104 108 113 100 83-110 MG/DL Discharge Medications Scheduled Atorvastatin Calcium (Lipitor) 20 Mg Tab, 20 MG PO DAILY, (Reported) Cholecalciferol (Vitamin D3) (Vitamin D3) 1,000 Unit Tab, 1,000 UNIT PO DAILY, (Reported) Ferrous Sulfate (Ferrous Sulfate) 325 Mg Tab, 325 MG PO DAILY, (Reported) Furosemide (Lasix) 20 Mg Tab, 10 MG PO DAILY, (Reported) Lisinopril (Lisinopril) 10 Mg Tab, 10 MG PO DAILY, (Reported) [place]-3 Fatty Acids/Fish Oil (Fish Oil 1,000 mg Capsule) 1 Each Capsule, 1,000 MG PO DAILY, (Reported) Omeprazole (Omeprazole) 40 Mg Capsule.dr, 40 MG PO DAILY Spironolactone (Spironolactone) 25 Mg Tablet, 12.5 MG PO DAILY, (Reported) Scheduled PRN Acetaminophen (Acetaminophen) 325 Mg Tablet, 650 MG PO Q4H PRN for PAIN, (Reported) Allergies Coded Allergies: morphine (Verified Allergy, Unknown, heart low rate, 09/15/18) RADHA NICHOLSON MD Sep 16, 2018 18:46
== END 2018-09-16 14:35 | disposition home or self-care (01) | DRG 812 ==
LOC: M ED 13:52 → M ED INP 15:46 → M PCU 17:32
PROVIDERS: ADMIT General Practice; ATTEND Student in an Organized Health Care Education/Training Program
PROC: 30233N1 Transfusion of Nonautologous Red Blood Cells into Peripheral Vein, Percutaneous Approach (ICD-10-PCS; principal; 2018-09-15)
DX: D50.0 Iron deficiency anemia secondary to blood loss (chronic) (principal); K92.2 Gastrointestinal hemorrhage, unspecified; K58.9 Irritable bowel syndrome, unspecified; K64.4 Residual hemorrhoidal skin tags; I25.10 Atherosclerotic heart disease of native coronary artery without angina pectoris; E11.9 Type 2 diabetes mellitus without complications; I10 Essential (primary) hypertension; D50.9 Iron deficiency anemia, unspecified; F17.200 Nicotine dependence, unspecified, uncomplicated; E78.5 Hyperlipidemia, unspecified; E55.9 Vitamin D deficiency, unspecified; Z90.49 Acquired absence of other specified parts of digestive tract; Z98.42 Cataract extraction status, left eye; Z79.82 Long term (current) use of aspirin; Z79.899 Other long term (current) drug therapy; Z88.5 Allergy status to narcotic agent

== ENCOUNTER → 2018-09-23 | Outpatient (REF) | payer MEDICARE ==
[~2018-09-23] MED LIST changes: +APAP325T4 PO; +ASPI81TA85 PO; +CYAN100049 PO; +FISH1000 PO; +OMEP40CA2 PO; +SPIR-10 PO; -VITA10002 PO
== END ==
LOC: M LAB REF 16:52
PROVIDERS: ATTEND Nurse Practitioner Adult Health
DX: D64.9 Anemia, unspecified (principal)

== ENCOUNTER 2019-06-29 11:34 | Inpatient (IN) | payer MEDICARE ==
[~2019-06-29] VITALS: Ht 165.1 cm; Wt 90.5 kg
[2019-06-29] VITALS (11 sets, daily range): BP systolic 113–172; BP diastolic 61–87
[~2019-06-29 11:34] MED LIST changes: -OMEP40CA2 PO; +OMEP40CA97 PO
[2019-06-29 12:14] LABS: BASO # 0.1 10^3/uL (0.0-0.2); BASO % 0.6 % (0.0-1.0); EOS # 0.1 10^3/uL (0.0-0.5); EOS % 1.1 % (0.0-3.0); HEMATOCRIT 25.1 % (36.0-47.0); LYMPH # 1.5 10^3/uL (1.5-5.0); LYMPH % 17.7 % (24.0-44.0); MEAN CORPUSCULAR HEMOGLOBIN 17.7 pg (27.0-33.0); MEAN CORPUSCULAR HGB CONC 25.1 g/dl (32.0-36.5); MEAN CORPUSCULAR VOLUME 70.5 fl (80.0-96.0); MONO # 0.8 10^3/uL (0.0-0.8); MONO % 9.1 % (0.0-5.0); NEUTROPHILS % 70.9 % (36.0-66.0); PLATELET COUNT, AUTOMATED 270 10^3/uL (150-450); RED BLOOD COUNT 3.56 10^6/uL (4.00-5.40); WHITE BLOOD COUNT 8.4 10^3/uL (4.0-10.0)
[2019-06-29 12:18] LABS: HEMOGLOBIN 6.3 g/dl (12.0-15.5)
[2019-06-29 12:27] LABS: INR 1.13; PROTHROMBIN TIME 14.2 SECONDS (11.8-14.0)
[2019-06-29 12:28] LABS: PARTIAL THROMBOPLASTIN TIME 31.1 SECONDS (25.0-38.4)
[2019-06-29 12:34] LABS: BILIRUBIN,DIRECT 0.2 MG/DL (0.0-0.2); BILIRUBIN,TOTAL 0.6 MG/DL (0.2-1.0); CALCIUM LEVEL 8.7 MG/DL (8.8-10.2); CREATININE FOR GFR 1.22 MG/DL (0.55-1.30); GLOMERULAR FILTRATION RATE 45.7 (>39); PERCENT SATURATION 4.3 % (13.2-45.0); POTASSIUM SERUM 4.4 MEQ/L (3.5-5.1); TOTAL PROTEIN 6.6 GM/DL (6.4-8.2)
[2019-06-29] MEDS ORDERED: VITAD1000T PO (13:25)
[2019-06-29] MEDS ORDERED: OMEP-221 PO (13:25)
--- NOTE | 2019-06-29 13:44 | HPEPDOC ---
General Date of Admission 06/29/19 Date of Service: Jun 29, 2019 Chief Complaint The patient is a 73-year-old female admitted with a reason for visit of anemia. Source: Patient Exam Limitations: No limitations Timing/Duration: Day(s) Severity: Moderate Associated Symptoms: Shortness of breath History of Present Illness Patient 73 years old female with past medical history of GI bleed, hemorrhoids, aortic stenosis, dyslipidemia presented to the hospital with increased shortness of breath. Patient stated that for past 5-7 days she has been having increased shortness of breath. She denied fever, chills, nausea, vomiting, diarrhea or dysuria. In Emergency room patient was found to have hemoglobin 6.3, stool positive for occult blood, no leukocytosis. 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 Grimaldo in April 2018. Colonoscopy was not done. Home Medications Scheduled Atorvastatin Calcium (Lipitor) 20 Mg Tab, 20 MG PO DAILY, (Reported) Cholecalciferol (Vitamin D3) (Vitamin D3) 1,000 Unit Tablet, 1,000 UNITS PO DAILY, (Reported) Ferrous Sulfate (Ferrous Sulfate) 325 Mg Tab, 325 MG PO DAILY, (Reported) Furosemide (Lasix) 20 Mg Tab, 10 MG PO DAILY, (Reported) Lisinopril (Lisinopril) 10 Mg Tab, 10 MG PO DAILY, (Reported) [place]-3 Fatty Acids/Fish Oil (Fish Oil 1,000 mg Capsule) 1 Each Capsule, 1,000 MG PO DAILY, (Reported) Omeprazole (Omeprazole) 40 Mg Capsule.dr, 40 MG PO DAILY, (Reported) Allergies Coded Allergies: morphine (Verified Allergy, Unknown, heart low rate, 09/15/18) Past Medical History Medical History Iron deficiency anemia, history of gastrointestinal (GI) bleed, hemorrhoids, inflammatory bowel disease (IBD), dyslipidemia, hypertension, diabetes, coronary artery disease, duodenal AVM, aortic stenosis Surgical History Cholecystectomy. Left cataract. EGD.AVM clips 04/2018 Colonoscopy: Inflammatory bowel disease, external hemorrhoids Family History mother , father , son - Coronary artery disease., son - cva ,htn Social History * Smoker: former Smoker Alcohol: Denies Drugs: denies A-FIB/CHADSVASC A-FIB History Current/History of A-Fib/PAF?: No Current PO Anticoag Therapy: No Review of Systems Constitutional: Denies: Chills Eyes: Denies: Pain, Vision change Skin: Denies: Rash, Lesions Pulmonary: Reports: Dyspnea Cardiovascular: Denies: Chest Pain Gastrointestinal: Denies: Nausea, Vomiting Genitourinary: Denies: Dysuria, Frequency Hematologic: Denies: Bruising Endocrine: Denies: Polydipsia, Polyphagia Musculoskeletal: Denies: Neck Pain, Back Pain Neurological: Denies: Weakness Physical Examination General Exam: Positive: Alert, Cooperative Eye Exam: Positive: PERRLA ENT Exam: Positive: Atraumatic Neck Exam: Positive: Supple; Negative: JVD Chest Exam: Positive: Clear to auscultation Heart Exam: Positive: Tachycardic Telemetry: Positive: Sinus Abdomen Exam: Positive: Normal bowel sounds Extremity Exam: Negative: Clubbing Skin Exam: Positive: Nl turgor and temperature Neuro Exam: Positive: Normal Gait, Strength at 5/5 X4 ext Psych Exam: Positive: Mental status NL Vital Signs Vital Signs Date Time Temp Pulse Resp B/P (MAP) Pulse Ox O2 Delivery O2 Flow Rate FiO2 06/29/19 11:45 06/29/19 11:35 97.2 101 26 96 Room Air Laboratory Data Labs 24H Laboratory Tests 2 06/29/19 11:57: Immature Granulocyte % (Auto) 0.6, Neutrophils (%) (Auto) 70.9H, Lymphocytes (%) (Auto) 17.7L, Monocytes (%) (Auto) 9.1H, Eosinophils (%) (Auto) 1.1, Basophils (%) (Auto) 0.6, Neutrophils # (Auto) 6.0, Lymphocytes # (Auto) 1.5, Monocytes # (Auto) 0.8, Eosinophils # (Auto) 0.1, Basophils # (Auto) 0.1, Nucleated Red Blood Cells % (auto) 1.3H, Prothrombin Time 14.2H, Prothromb Time International Ratio 1.13, Activated Partial Thromboplast Time 31.1, Anion Gap 5L, Glomerular Filtration Rate 45.7, Calcium Level 8.7L, Iron Level 19L, Total Iron Binding C apacity 444, Transferrin % Saturation 4.3L, Ferritin 4L, Total Bilirubin 0.6, Direct Bilirubin 0.2, Aspartate Amino Transf (AST/SGOT) 26, Alanine Aminotransferase (ALT/SGPT) 25, Alkaline Phosphatase 169H, Total Protein 6.6, Albumin 3.0L, Albumin/Globulin Ratio 0.83L, Vitamin B12 Level 290 CBC/BMP Laboratory Tests 06/29/19 11:57 Assessment/Plan Patient 73 years old female with past medical history of GI bleed, hemorrhoids, aortic stenosis, dyslipidemia presented to the hospital with increased shortness of breath. Patient stated that for past 5-7 days she has been having increased shortness of breath. She denied fever, chills, nausea, vomiting, diarrhea or dysuria. In Emergency room patient was found to have hemoglobin 6.3, stool positive for occult blood, no leukocytosis. 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 Grimaldo in April 2018. Colonoscopy was not done. Problems (1) GI bleed Status: Acute Problem Text: Patient has a history of AVM. Also patient has a history of aortic stenosis, there is possibility for Heyde syndrome Appreciate/agree with GI consult I will give 2 units of blood Clear liquid diet for now H&H every 6 hours (2) Shortness of breath Status: Acute Problem Text: Secondary to blood loss anemia Lungs clear to auscultation Patient doesn't have fever or leukocytosis or cough (3) Diabetes Status: Chronic Problem Text: Insulin sliding scale (4) Acute blood loss anemia Status: Acute Problem Text: Secondary to acute GI bleed Will transfuse 2 units of blood Plan / VTE VTE Prophylaxis Ordered?: No VTE Exclusion Pharmacological: Active Bleeding ELLYN RIVAS DO Jun 29, 2019 13:44
[2019-06-29] MEDS ORDERED: GLUCAGON FOR INJ 1 MG VIAL (J1610) SC PRN (13:45)
[2019-06-29] MEDS ORDERED: DEXTROSE 50% 50 ML SYRINGE IV PRN (13:45)
[2019-06-29] MEDS ORDERED: GLUCOSE 4 GM CHEW TABLET PO PRN (13:45)
[2019-06-29] MEDS ORDERED: lisinopriL 10 MG TAB PO ONE (15:00)
[2019-06-29] MEDS: HumaLOG INSULIN (NovoLOG) PER UNIT SC SCH (16:53)
--- NOTE | 2019-06-29 18:38 | CR ---
DATE OF CONSULTATION: 06/29/2019 The patient is a 73-year-old female who has had some anemia issues and presented to the emergency room with shortness of breath/progressive anemia. 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 She has not been on any anticoagulation and has had the upper endoscopy, not a colonoscopy, however. She has not had any further workup with a capsule endoscopy concerning arteriovenous malformations (AVMs), etcetera. PAST MEDICAL HISTORY: Her past medical history is significant for iron deficiency anemia, history of gastrointestinal (GI) bleed, history of hemorrhoids, history of inflammatory bowel disease, history of dyslipidemia, history of hypertension, diabetes, coronary artery disease, duodenal arteriovenous malformation (AVM), aortic stenosis, cholecystectomy, cataract surgery. Last colonoscopy was in 2017 and revealed no significant abnormality except for some diverticulum. The medications are the following: Atorvastatin, vitamin D, iron, Lasix, lisinopril, fish oil, and omeprazole. PHYSICAL EXAMINATION: Reveals a 73-year-old female who looks stated age. HEENT: Unremarkable. NECK: Supple without adenopathy. LUNGS: Clear anteriorly. HEART: Regular with multiple irregular beats. ABDOMEN: Soft, nontender. EXTREMITIES: Warm and well-perfused. LABORATORY DATA: Hematocrit is 25. IMPRESSION AND PLAN: The patient has gastrointestinal (GI) bleeding that is the most likely etiology for her anemia, although it has probably been a chronic anemia given how low it is at this time, and from my standpoint, she did not truly present with an acute bleed but she does have some hemoccult positive stools. I do feel that she should be transfused. Once she is stable, she can have an outpatient upper endoscopy but most likely the most important thing for her is a workup for arteriovenous malformations (AVMs) in the small bowel, for example a capsule endoscopy as an outpatient. If she has significant bleeding or does not appropriately resolve her anemia then she may need an endoscopy as an inpatient. If she has brisk GI bleeding concerning in any nature then possible emergent endoscopy with interventional radiology is a possibility for her. In any case, at this time, it is supportive care. I do feel that she seems quite stable at this time. Clear liquids tonight are fine. If her hematocrit is up appropriately tomorrow, possibly progressing her diet and if followup hemoglobin and hematocrit are fine then she be discharged to home with followup as an outpatient.
[2019-06-29 19:22] LABS: HEMATOCRIT 31.1 % (36.0-47.0)
[2019-06-29 19:27] LABS: HEMOGLOBIN 8.5 g/dl (12.0-15.5)
[2019-06-29] MEDS: PANTOPRAZOLE 40MG INJ (PROTONIX) (C9113) IV SCH (20:34)
[2019-06-29] MEDS ORDERED: HumaLOG INSULIN (NovoLOG) PER UNIT SC SCH (21:00)
[2019-06-30] MEDS: NYSTATIN 100,000 UNITS/GM TOPICAL PWD 15 GM TOP SCH ×2 (02:50→09:05)
[2019-06-30 03:03] LABS: HEMOGLOBIN 8.3 g/dl (12.0-15.5)
[2019-06-30 06:00] VITALS: BP 121/77
[2019-06-30 06:12] LABS: HEMATOCRIT 31.4 % (36.0-47.0); HEMOGLOBIN 8.4 g/dl (12.0-15.5); MEAN CORPUSCULAR HEMOGLOBIN 19.7 pg (27.0-33.0); MEAN CORPUSCULAR HGB CONC 26.8 g/dl (32.0-36.5); MEAN CORPUSCULAR VOLUME 73.5 fl (80.0-96.0); PLATELET COUNT, AUTOMATED 236 10^3/uL (150-450); RED BLOOD COUNT 4.27 10^6/uL (4.00-5.40); WHITE BLOOD COUNT 10.8 10^3/uL (4.0-10.0)
[2019-06-30 06:27] LABS: CALCIUM LEVEL 9.1 MG/DL (8.8-10.2); CREATININE FOR GFR 1.02 MG/DL (0.55-1.30); GLOMERULAR FILTRATION RATE 56.2 (>39); MAGNESIUM LEVEL 2.3 MG/DL (1.8-2.4); POTASSIUM SERUM 4.5 MEQ/L (3.5-5.1)
[2019-06-30] MEDS: HumaLOG INSULIN (NovoLOG) PER UNIT SC SCH (07:30)
[2019-06-30 08:59] VITALS: BP 132/63
[2019-06-30] MEDS ORDERED: FUROSEMIDE 20 MG/2 ML VIAL (J1940) IV ONE (09:00)
[2019-06-30] MEDS ORDERED: ATORVASTATIN 20 MG TAB PO SCH (09:00)
[2019-06-30] MEDS: PANTOPRAZOLE 40MG INJ (PROTONIX) (C9113) IV SCH (09:00)
[2019-06-30] MEDS ORDERED: VITAMIN D 1,000 INTERNATIONAL UNITS TABLET PO SCH (09:00)
[2019-06-30] MEDS ORDERED: FERROUS SULFATE 325MG TAB PO SCH (09:00)
[2019-06-30] MEDS ORDERED: FUROSEMIDE 20 MG TAB PO SCH (09:00)
[2019-06-30] MEDS ORDERED: lisinopriL 10 MG TAB PO SCH (09:00)
[2019-06-30 09:17] LABS: HEMATOCRIT 31.2 % (36.0-47.0); HEMOGLOBIN 8.4 g/dl (12.0-15.5)
--- NOTE | 2019-06-30 09:53 | IPN ---
DATE: 06/30/2019 The patient has been stable overnight. No melanotic or bright red blood per rectum. No bowel movements. No nausea. No vomiting. Tolerating a diet. She has had no fevers or chills, and at this point seems to be stable. Hematocrit is stable, and I anticipate her hematocrit drop was a slow but progressive anemia that occurred over a prolonged period of time suggesting that despite her significant anemia that she presented with that this will need a full GI workup. Since she has had the upper endoscopy that showed an AV malformation it is reasonable to repeat her upper endoscopy at some point. However, I anticipate she will need a capsule endoscopy as well. The contracts intern are best equipped to proceed with this line of evaluation and I would recommend followup with them in 3-4 weeks after this COVID crisis has resolved. However from my standpoint, if she is discharged home after tolerating a regular diet she will need close monitoring with her hemoglobin and hematocrit and may need some outpatient transfusions and I will defer that to her primary care provider to followup with this and the hospitalist to arrange that.
[2019-06-30] MEDS ORDERED: FUROSEMIDE 20 MG/2 ML VIAL (J1940) IV SCH (10:00)
--- NOTE | 2019-06-30 13:14 | DS.PDOC ---
Discharge Summary General Date of Admission Jun 29, 2019 at 13:21 Date of Discharge 06/30/19 Discharge Summary PROCEDURES PERFORMED DURING STAY: [None]. ADMITTING DIAGNOSES: GI bleed Shortness of breath Diabetes Acute blood loss anemia DISCHARGE DIAGNOSES: GI bleed Shortness of breath Diabetes Acute blood loss anemia COMPLICATIONS/CHIEF COMPLAINT: Anemia. HISTORY OF PRESENT ILLNESS: Patient 73 years old female with past medical history of GI bleed, hemorrhoids, aortic stenosis, dyslipidemia presented to the hospital with increased shortness of breath. Patient stated that for past 5-7 days she has been having increased shortness of breath. She denied fever, chills, nausea, vomiting, diarrhea or dysuria. In Emergency room patient was found to have hemoglobin 6.3, stool positive for occult blood, no leukocytosis. 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 Grimaldo in April 2018. Colonoscopy was not done. HOSPITAL COURSE: During hospital stay patient received 2 units of blood, hemoglobin was stable. Surgical team recommended endoscopy and colonoscopy in the outpatient settings DISCHARGE MEDICATIONS: Please see below. ALLERGIES: Please see below. PHYSICAL EXAMINATION ON DISCHARGE: VITAL SIGNS: Please see below. Physical Examination Physical Examination General Exam: Positive: Alert, Cooperative Eye Exam: Positive: PERRLA ENT Exam: Positive: Atraumatic Neck Exam: Positive: Supple; Negative: JVD Chest Exam: Positive: Clear to auscultation Heart Exam: Positive: Tachycardic Telemetry: Positive: Sinus Abdomen Exam: Positive: Normal bowel sounds Extremity Exam: Negative: Clubbing Skin Exam: Positive: Nl turgor and temperature Neuro Exam: Positive: Normal Gait, Strength at 5/5 X4 ext Psych Exam: Positive: Mental status NL LABORATORY DATA: Please see below. PROGNOSIS: Fair ACTIVITY: [As tolerated]. DIET: Cardiac DISCHARGE PLAN: Home DISCHARGE INSTRUCTIONS: Follow-up with PCP and typewriter mechanic Check CBC in 2-3 days DISCHARGE CONDITION: Stable TIME SPENT ON DISCHARGE: Greater than 20 minutes. Vital Signs/I&Os Vital Signs Date Time Temp Pulse Resp B/P (MAP) Pulse Ox O2 Delivery O2 Flow Rate FiO2 06/30/19 09:18 93 Room Air 06/30/19 08:59 132/63 06/30/19 06:00 98.0 76 21 2.0 I&O- Last 24 Hours up to 6 AM 06/30/19 06:00 Intake Total 1265 ml Output Total 850 ml Balance 415 ml Laboratory Data Labs 24H Laboratory Tests 2 06/29/19 16:53: Bedside Glucose (Misc Panel) 95 06/29/19 20:05: Bedside Glucose (Misc Panel) 103 06/30/19 05:45: Nucleated Red Blood Cells % (auto) 1.2H, Anion Gap 2L, Glomerular Filtration Rate 56.2, Calcium Level 9.1, Magnesium Level 2.3 CBC/BMP Laboratory Tests 06/29/19 18:59 06/30/19 02:58 06/30/19 05:45 06/30/19 08:53 FSBS Laboratory Tests Test 06/29/19 16:53 06/29/19 20:05 Range/Units Bedside Glucose (Misc Panel) 95 103 83-110 MG/DL Discharge Medications Scheduled Atorvastatin Calcium (Lipitor) 20 Mg Tab, 20 MG PO DAILY, (Reported) Cholecalciferol (Vitamin D3) (Vitamin D3) 1,000 Unit Tablet, 1,000 UNITS PO DAILY, (Reported) Ferrous Sulfate (Ferrous Sulfate) 325 Mg Tab, 325 MG PO DAILY, (Reported) Furosemide (Lasix) 20 Mg Tab, 10 MG PO DAILY, (Reported) Lisinopril (Lisinopril) 10 Mg Tab, 10 MG PO DAILY, (Reported) [place]-3 Fatty Acids/Fish Oil (Fish Oil 1,000 mg Capsule) 1 Each Capsule, 1,000 MG PO DAILY, (Reported) Omeprazole (Omeprazole) 40 Mg Capsule.dr, 40 MG PO DAILY, (Reported) Allergies Coded Allergies: morphine (Verified Allergy, Unknown, heart low rate, 09/15/18) ELLYN RIVAS DO Jun 30, 2019 13:14
== END 2019-06-30 11:45 | disposition home or self-care (01) | DRG 378 ==
LOC: M ED 11:34 → M ED INP 13:21 → ENRESERVDT 15:00 → ENRESERVTM 15:00 → M MSPAV 16:07
PROVIDERS: ADMIT Internal Medicine; ATTEND Internal Medicine
PROC: 30233N1 Transfusion of Nonautologous Red Blood Cells into Peripheral Vein, Percutaneous Approach (ICD-10-PCS; principal; 2019-06-29)
DX: K92.2 Gastrointestinal hemorrhage, unspecified (principal); D62 Acute posthemorrhagic anemia; E11.9 Type 2 diabetes mellitus without complications; K64.4 Residual hemorrhoidal skin tags; I35.0 Nonrheumatic aortic (valve) stenosis; E78.5 Hyperlipidemia, unspecified; Z79.899 Other long term (current) drug therapy; Z88.5 Allergy status to narcotic agent; I10 Essential (primary) hypertension; I25.10 Atherosclerotic heart disease of native coronary artery without angina pectoris; Q27.33 Arteriovenous malformation of digestive system vessel

== ENCOUNTER → 2019-08-03 | Outpatient (CLI) | payer MEDICARE ==
[~2019-08-03] MED LIST changes: +OMEP-221 PO; +VITAD1000T PO
== END ==
LOC: M LABSMTC 09:21
PROVIDERS: ATTEND Anesthesiology
DX: Z01.812 Encounter for preprocedural laboratory examination (principal); Z11.59 Encounter for screening for other viral diseases
CPT/HCPCS: C9803; U0002

== ENCOUNTER 2019-08-06 07:00 | Day surgery (SDC) | payer MEDICARE ==
[~2019-08-06] VITALS: Ht 165.1 cm; Wt 83.8 kg
[2019-08-06] MEDS: NS 1,000 ML IV ONE (06:45)
[2019-08-06] MEDS ORDERED: LIDOCAINE 2% 100MG/5ML SDV (FOR ANES.) As Ordered ONE (07:54)
[2019-08-06] MEDS ORDERED: propofoL 200 MG/20 ML VIAL As Ordered ONE (07:54)
--- NOTE | 2019-08-06 08:23 | ROOR ---
Patient Name: Sangita Benavides Procedure Date: 08/06/2019 8:05 AM Date of : 1945 Age: 74 Room: [facility] Gender: Female Note Status: Finalized Procedure: Upper GI endoscopy Indications: Iron deficiency anemia Providers: Prakash Aranda Jr, MD Referring MD: Magdalena Rodriguez NP Requesting Provider: Medicines: Propofol per Anesthesia Complications: No immediate complications. Procedure: Pre-Anesthesia Assessment: - Prior to the procedure, a History and Physical was performed, and patient medications and allergies were reviewed. The patient is competent. The risks and benefits of the procedure and the sedation options and risks were discussed with the patient. All questions were answered and informed consent was obtained. Patient identification and proposed procedure were verified by the physician and the nurse in the pre-procedure area and in the procedure room. Mental Status Examination: alert and oriented. Airway Examination: normal oropharyngeal airway and neck mobility. Respiratory Examination: clear to auscultation. CV Examination: normal. ASA Grade Assessment: III - A patient with severe systemic disease. After reviewing the risks and benefits, the patient was deemed in satisfactory condition to undergo the procedure. The anesthesia plan was to use moderate sedation / analgesia (conscious sedation). Immediately prior to administration of medications, the patient was re-assessed for adequacy to receive sedatives. The heart rate, respiratory rate, oxygen saturations, blood pressure, adequacy of pulmonary ventilation, and response to care were monitored throughout the procedure. The physical status of the patient was re-assessed after the procedure. The Endoscope was introduced through the mouth, and advanced to the second part of duodenum. The upper GI endoscopy was accomplished without difficulty. The patient tolerated the procedure well. Findings: The upper third of the esophagus, middle third of the esophagus and lower third of the esophagus were normal. A small hiatal hernia was present. The cardia, gastric fundus, gastric body, gastric antrum, prepyloric region of the stomach and pylorus were normal. The duodenal bulb was normal. Three diminutive angioectasias without bleeding were found in the first portion of the duodenum, in the second portion of the duodenum and in the third portion of the duodenum. Impression: - Normal upper third of esophagus, middle third of esophagus and lower third of esophagus. - Small hiatal hernia. - Normal cardia, gastric fundus, gastric body, antrum, prepyloric region of the stomach and pylorus. - Normal duodenal bulb. - Three non-bleeding angioectasias in the duodenum. - No specimens collected. Recommendation: - Discharge patient to home (ambulatory). - Return to my office at appointment to be scheduled. Prakash Aranda MD Prakash Aranda Jr, MD 08/06/2019 8:23:02 AM Electronically signed by Prakash Aranda Jr, MD Number of Addenda: 0 Note Initiated On: 08/06/2019 8:05 AM Estimated Blood Loss: Estimated blood loss: none.
--- NOTE | 2019-08-06 08:39 | ROOR ---
Patient Name: Sangita Benavides Procedure Date: 08/06/2019 8:06 AM Date of : 1945 Age: 74 Room: [facility] Gender: Female Note Status: Finalized Procedure: Colonoscopy Indications: Iron deficiency anemia Providers: Prakash Aranda Jr, MD Referring MD: Magdalena Rodriguez NP Requesting Provider: Medicines: Propofol per Anesthesia Complications: No immediate complications. Procedure: Pre-Anesthesia Assessment: - Prior to the procedure, a History and Physical was performed, and patient medications and allergies were reviewed. The patient is competent. The risks and benefits of the procedure and the sedation options and risks were discussed with the patient. All questions were answered and informed consent was obtained. Patient identification and proposed procedure were verified by the physician and the nurse in the pre-procedure area and in the procedure room. Mental Status Examination: alert and oriented. Airway Examination: normal oropharyngeal airway and neck mobility. Respiratory Examination: clear to auscultation. CV Examination: normal. ASA Grade Assessment: II - A patient with mild systemic disease. After reviewing the risks and benefits, the patient was deemed in satisfactory condition to undergo the procedure. The anesthesia plan was to use moderate sedation / analgesia (conscious sedation). Immediately prior to administration of medications, the patient was re-assessed for adequacy to receive sedatives. The heart rate, respiratory rate, oxygen saturations, blood pressure, adequacy of pulmonary ventilation, and response to care were monitored throughout the procedure. The physical status of the patient was re-assessed after the procedure. The Colonoscope was introduced through the anus and advanced to the cecum, identified by appendiceal orifice and ileocecal valve. The colonoscopy was performed without difficulty. The patient tolerated the procedure well. The quality of the bowel preparation was adequate. Findings: The rectum, recto-sigmoid colon, descending colon, transverse colon, ascending colon, cecum, appendiceal orifice and ileocecal valve appeared normal. Multiple small and large-mouthed diverticula were found in the sigmoid colon. Impression: - The rectum, recto-sigmoid colon, descending colon, transverse colon, ascending colon, cecum, appendiceal orifice and ileocecal valve are normal. - Diverticulosis in the sigmoid colon. - No specimens collected. Recommendation: - Discharge patient to home (ambulatory). - Return to my office at appointment to be scheduled. Prakash Aranda MD Prakash Aranda Jr, MD 08/06/2019 8:38:52 AM Electronically signed by Prakash Aranda Jr, MD Number of Addenda: 0 Note Initiated On: 08/06/2019 8:06 AM Estimated Blood Loss: Estimated blood loss: none.
[2019-08-06 09:09] VITALS: BP 115/57
== END 2019-08-06 09:20 | disposition home or self-care (01) ==
LOC: M OPP 07:00
PROVIDERS: ATTEND Surgery
DX: D50.9 Iron deficiency anemia, unspecified (principal); K57.30 Diverticulosis of large intestine without perforation or abscess without bleeding; E11.9 Type 2 diabetes mellitus without complications; J44.9 Chronic obstructive pulmonary disease, unspecified; F17.210 Nicotine dependence, cigarettes, uncomplicated; Z79.899 Other long term (current) drug therapy; Z88.5 Allergy status to narcotic agent

== ENCOUNTER → 2020-04-02 | Outpatient (CLI) | payer SELFPAY ==
[~2020-04-02] MED LIST changes: +AMLO1TAB24 PO; -AMLO5TAB6 PO; -ASPI81TA85 PO; +ASPI81TA86 PO; +D31000TA2 PO; -VITAD1000T PO
== END ==
LOC: M LABSMTC 08:06
PROVIDERS: ATTEND Pediatrics
DX: Z20.822 Contact with and (suspected) exposure to COVID-19 (principal)

== ENCOUNTER → 2021-02-03 | Outpatient (CLI) | payer MEDICARE ==
[~2021-02-03] MED LIST changes: +ASPI-569 PO; -ASPI81TAEC PO; +LISI10TA22 PO; -LISI10TA4 PO; +OMEP40CA4 PO; -OMEP40CA97 PO
--- NOTE | 2021-02-03 11:10 | REP ---
INDICATION: WHEEZING, HYPOXIC COMPARISON: 04/30/2018 TECHNIQUE: PA and lateral. FINDINGS: The mediastinum and cardiac silhouette are stable. Aortic valve repair again noted. The lung ya demonstrate chronic appearing interstitial changes without acute consolidation, effusion, or pneumothorax. The skeletal structures are intact and normal. IMPRESSION: Chronic appearing changes. No focal consolidation or effusion. <Electronically signed by Mayank Mendoza > 02/03/21 [id number]
== END ==
LOC: M WUC 10:09
PROVIDERS: ATTEND Nurse Practitioner Adult Health
DX: R91.8 Other nonspecific abnormal finding of lung field (principal)

== ENCOUNTER → 2021-04-10 | Outpatient (REF) | payer MEDICARE ==
[~2021-04-10] MED LIST changes: -OMEP-221 PO; +OMEP40CA5 PO
== END ==
LOC: M LAB REF 16:19
PROVIDERS: ATTEND Physician Assistant Medical
DX: M10.9 Gout, unspecified (principal)

== ENCOUNTER → 2021-07-13 | Outpatient (CLI) | payer MEDICARE ==
[~2021-07-13] MED LIST changes: -D31000TA2 PO; +VITA100093 PO
== END ==
LOC: M WHC 13:44
PROVIDERS: ATTEND Nurse Practitioner Adult Health
DX: Z12.31 Encounter for screening mammogram for malignant neoplasm of breast (principal)

== ENCOUNTER → 2021-08-30 | Outpatient (CLI) | payer MEDICARE | LOC: M WUC 13:08 | PROVIDERS: ATTEND Nurse Practitioner Adult Health | DX: R91.8 Other nonspecific abnormal finding of lung field (principal); J44.9 Chronic obstructive pulmonary disease, unspecified ==

== ENCOUNTER → 2021-09-15 | Outpatient (CLI) | payer MEDICARE | LOC: M RAD 14:55 | PROVIDERS: ATTEND Nurse Practitioner Adult Health | DX: R91.8 Other nonspecific abnormal finding of lung field (principal) ==

== ENCOUNTER → 2021-10-02 | Outpatient (CLI) | payer MEDICARE ==
[~2021-10-02] MED LIST changes: +METO1TAB7 PO; +NYST-13 TOP; +PROAAER10 INH
== END ==
LOC: M PLARAD 10:51
PROVIDERS: ATTEND Nurse Practitioner Adult Health
DX: R91.8 Other nonspecific abnormal finding of lung field (principal); J43.9 Emphysema, unspecified
CPT/HCPCS: 78815; A9552

== ENCOUNTER → 2021-10-11 | Outpatient (REF) | payer MEDICARE ==
[2021-10-11 16:35] LABS: INR 0.92; PROTHROMBIN TIME 12.7 SECONDS (12.7-14.5)
[2021-10-11 16:39] LABS: PARTIAL THROMBOPLASTIN TIME 30.8 SECONDS (25.9-37.0)
== END ==
LOC: M LAB REF 16:10
PROVIDERS: ATTEND Internal Medicine
DX: Z01.818 Encounter for other preprocedural examination (principal)

== ENCOUNTER → 2021-10-18 | Outpatient (CLI) | payer MEDICARE ==
[~2021-10-18] MED LIST changes: +LIDOCAINE 1% MDV 20ML VIAL As Ordered ONE
[2021-10-18 12:30] VITALS: BP 141/64
== END ==
LOC: M IRPRO 08:36
PROVIDERS: ATTEND Nurse Practitioner Adult Health
DX: C34.12 Malignant neoplasm of upper lobe, left bronchus or lung (principal); J95.811 Postprocedural pneumothorax

== ENCOUNTER → 2021-11-10 | Outpatient (CLI) | payer MEDICARE ==
[~2021-11-10] MED LIST changes: -LIDOCAINE 1% MDV 20ML VIAL As Ordered ONE
== END ==
LOC: M ONCR 11:06
PROVIDERS: ATTEND General Practice
DX: C34.12 Malignant neoplasm of upper lobe, left bronchus or lung (principal); J44.9 Chronic obstructive pulmonary disease, unspecified; I35.0 Nonrheumatic aortic (valve) stenosis; I10 Essential (primary) hypertension; E78.5 Hyperlipidemia, unspecified; E11.9 Type 2 diabetes mellitus without complications; Z79.51 Long term (current) use of inhaled steroids; Z79.84 Long term (current) use of oral hypoglycemic drugs; Z79.899 Other long term (current) drug therapy; Z82.49 Family history of ischemic heart disease and other diseases of the circulatory system; Z87.891 Personal history of nicotine dependence; Z88.5 Allergy status to narcotic agent; Z99.81 Dependence on supplemental oxygen

== ENCOUNTER 2021-12-08 14:56 | Outpatient (RCR) | payer MEDICARE ==
[~2021-12-08 14:56] MED LIST changes: +CLOT1CRE56 TOP
== END 2021-12-15 ==
LOC: M ONCR 14:56
PROVIDERS: ATTEND General Practice
DX: C34.11 Malignant neoplasm of upper lobe, right bronchus or lung (principal)

== ENCOUNTER → 2022-02-23 | Outpatient (CLI) | payer MEDICARE ==
[2022-02-23 14:09] LABS: ALBUMIN 3.1 G/DL (3.2-5.2); BILIRUBIN,TOTAL 0.5 MG/DL (0.3-1.2); CALCIUM LEVEL 9.5 MG/DL (8.3-10.6); CREATININE FOR GFR 0.98 MG/DL (0.55-1.30); GLOMERULAR FILTRATION RATE 58.4 (>39); POTASSIUM SERUM 4.6 MMOL/L (3.5-5.1)
== END ==
LOC: M ONCR 12:33
PROVIDERS: ATTEND General Practice
DX: C34.12 Malignant neoplasm of upper lobe, left bronchus or lung (principal)

== ENCOUNTER → 2022-02-26 | Outpatient (CLI) | payer MEDICARE ==
[~2022-02-26] MED LIST changes: +ISOVUE-370 76% 100ML VIAL As Ordered ONE
== END ==
LOC: M RAD 10:17
PROVIDERS: ATTEND General Practice
DX: C34.12 Malignant neoplasm of upper lobe, left bronchus or lung (principal)
CPT/HCPCS: 71260; Q9967

== ENCOUNTER → 2022-03-08 | Outpatient (CLI) | payer MEDICARE ==
[~2022-03-08] MED LIST changes: -ISOVUE-370 76% 100ML VIAL As Ordered ONE
== END ==
LOC: M ONCR 14:01
PROVIDERS: ATTEND General Practice
DX: C34.12 Malignant neoplasm of upper lobe, left bronchus or lung (principal); Z79.84 Long term (current) use of oral hypoglycemic drugs; Z79.899 Other long term (current) drug therapy; Z88.5 Allergy status to narcotic agent; Z87.891 Personal history of nicotine dependence; Z92.3 Personal history of irradiation

== ENCOUNTER → 2022-07-27 | Outpatient (CLI) | payer MEDICARE | LOC: M WHC 13:21 | PROVIDERS: ATTEND Nurse Practitioner Adult Health | DX: Z12.31 Encounter for screening mammogram for malignant neoplasm of breast (principal) ==

== ENCOUNTER → 2022-08-28 | Outpatient (CLI) | payer MEDICARE ==
[2022-08-28 10:43] LABS: ALBUMIN 3.1 G/DL (3.2-5.2); BILIRUBIN,TOTAL 0.5 MG/DL (0.3-1.2); CALCIUM LEVEL 9.2 MG/DL (8.3-10.6); CREATININE FOR GFR 1.04 MG/DL (0.55-1.30); GLOMERULAR FILTRATION RATE 54.4 (>39); POTASSIUM SERUM 4.6 MMOL/L (3.5-5.1); TOTAL PROTEIN 6.6 G/DL (5.7-8.2)
== END ==
LOC: M LAB 09:50
PROVIDERS: ATTEND General Practice
DX: C34.12 Malignant neoplasm of upper lobe, left bronchus or lung (principal)

== ENCOUNTER → 2022-08-29 | Outpatient (CLI) | payer MEDICARE ==
[~2022-08-29] MED LIST changes: +ISOVUE-370 76% 100ML VIAL As Ordered ONE
== END ==
LOC: M RAD 09:13
PROVIDERS: ATTEND General Practice
DX: C34.90 Malignant neoplasm of unspecified part of unspecified bronchus or lung (principal)
CPT/HCPCS: 71260; Q9967

== ENCOUNTER → 2022-09-06 | Outpatient (CLI) | payer MEDICARE ==
[~2022-09-06] MED LIST changes: -ISOVUE-370 76% 100ML VIAL As Ordered ONE
== END ==
LOC: M ONCR 13:48
PROVIDERS: ATTEND General Practice
DX: C34.12 Malignant neoplasm of upper lobe, left bronchus or lung (principal); J84.10 Pulmonary fibrosis, unspecified; R09.02 Hypoxemia; Z71.2 Person consulting for explanation of examination or test findings; Z79.84 Long term (current) use of oral hypoglycemic drugs; Z79.899 Other long term (current) drug therapy; Z87.891 Personal history of nicotine dependence; Z92.3 Personal history of irradiation

== ENCOUNTER 2022-09-11 14:13 | Emergency (ER) | payer MEDICARE ==
[~2022-09-11] VITALS: Ht 165.1 cm; Wt 95.2 kg
[2022-09-11 16:53] VITALS: BP 152/64; TEMP 97.5; O2SAT 88
== END 2022-09-11 16:56 | disposition home or self-care (01) ==
LOC: M ED 14:13
DX: M71.21 Synovial cyst of popliteal space [Baker], right knee (principal); E11.9 Type 2 diabetes mellitus without complications; I10 Essential (primary) hypertension; E78.5 Hyperlipidemia, unspecified; J44.9 Chronic obstructive pulmonary disease, unspecified; Z86.79 Personal history of other diseases of the circulatory system; Z79.52 Long term (current) use of systemic steroids; Z79.4 Long term (current) use of insulin; Z79.899 Other long term (current) drug therapy

== ENCOUNTER → 2022-09-25 | Outpatient (CLI) | payer MEDICARE | LOC: M RAD 14:16 | PROVIDERS: ATTEND Physician Assistant Medical | DX: M79.671 Pain in right foot (principal) ==

== ENCOUNTER → 2022-09-26 | Outpatient (REF) | payer MEDICARE | LOC: M LAB REF 16:26 | PROVIDERS: ATTEND Internal Medicine | DX: I50.42 Chronic combined systolic (congestive) and diastolic (congestive) heart failure (principal); J44.9 Chronic obstructive pulmonary disease, unspecified; Z95.4 Presence of other heart-valve replacement; I11.0 Hypertensive heart disease with heart failure ==

== ENCOUNTER → 2022-10-31 | Outpatient (REF) | payer MEDICARE ==
[2022-10-31 17:51] LABS: HEMATOCRIT 39.1 % (36.0-47.0)
[2022-10-31 18:16] LABS: PERCENT SATURATION 4.3 % (13.2-45.0)
[2022-10-31 18:19] LABS: FERRITIN 17.4 NG/ML (7.3-270.7)
== END ==
LOC: M LAB REF 16:54
PROVIDERS: ATTEND Nurse Practitioner Adult Health
DX: D50.9 Iron deficiency anemia, unspecified (principal)

== ENCOUNTER 2022-11-07 10:10 | Outpatient (CLI) | payer MEDICARE ==
[~2022-11-07] VITALS: Ht 162.6 cm; Wt 90.0 kg
[~2022-11-07 10:10] MED LIST changes: +ALBUTEROL SULFATE 2.5MG/0.5ML INH NEB SOLN INH PRN; +EPINEPHrine INJ 1 MG/ML 1ML AMP IM PRN; +diphenhydrAMINE 50MG/ML VIAL IV PRN; +methylPREDNISolone 125MG 2ML VIAL IV PRN
[2022-11-07 10:20] VITALS: BP 125/57; O2SAT 99
[2022-11-07] MEDS ORDERED: IRON SUCROSE 475 MG in NS 250 ML IV ONE (10:30)
[2022-11-07] MEDS ORDERED: NS 1,000 ML IV SCH (10:30)
[2022-11-07] MEDS ORDERED: IRON SUCROSE 25 MG in NS 23.75 ML IV ONE (10:30)
[2022-11-07 12:00] VITALS: BP 135/63; O2SAT 100
[2022-11-07 12:30] VITALS: BP 150/61; O2SAT 100
[2022-11-07 13:30] VITALS: BP 149/56; O2SAT 99
[2022-11-07 14:30] VITALS: BP 145/59; O2SAT 96
[2022-11-07 16:21] VITALS: BP 149/63; O2SAT 96
== END 2022-11-07 16:20 ==
LOC: M INFU 10:10
PROVIDERS: ATTEND Nurse Practitioner Adult Health
DX: D50.9 Iron deficiency anemia, unspecified (principal); Z88.5 Allergy status to narcotic agent
CPT/HCPCS: 96374; J1756

== ENCOUNTER → 2023-03-07 | Outpatient (CLI) | payer MEDICARE ==
[~2023-03-07] MED LIST changes: -ALBUTEROL SULFATE 2.5MG/0.5ML INH NEB SOLN INH PRN; -EPINEPHrine INJ 1 MG/ML 1ML AMP IM PRN; -diphenhydrAMINE 50MG/ML VIAL IV PRN; -methylPREDNISolone 125MG 2ML VIAL IV PRN
== END ==
LOC: M ONCR 12:35
PROVIDERS: ATTEND General Practice
DX: C34.12 Malignant neoplasm of upper lobe, left bronchus or lung (principal); Z71.2 Person consulting for explanation of examination or test findings; Z79.84 Long term (current) use of oral hypoglycemic drugs; Z79.899 Other long term (current) drug therapy; Z88.5 Allergy status to narcotic agent; Z87.891 Personal history of nicotine dependence; Z92.3 Personal history of irradiation; Z99.81 Dependence on supplemental oxygen